=== PATIENT | female | born 1930 | race Caucasian/White ===

== ENCOUNTER → 2016-12-23 | Outpatient (CLI) | payer MEDICARE, OTHER, MEDICAID ==
[~2016-12-23] MED LIST: ALBU2.5V4 IH; ALPR0.25 PO; ASCO-262 PO; ASPI-983 PO; BENZ-13 PO; CALC-901 PO; CEFD300C3 PO; CLON0.1T PO; CYAN500T2 PO; FURO-125 PO; GUAI600T59 PO; HYDR-753 PO; LACT20SO2 PO; LOSA100T28 PO; MAGN400O7 PO; MONT10TA21 PO; NYST1POW22 TOP; POLY17PO6 PO; POTA20TA8 PO; PRAS10TA6 PO; PRED10TA22 PO; RT-ALBUINH IH; SIMV40TA4 PO; SODI30SP2 NS; TRAM50TA2 PO
--- NOTE | 2016-12-23 15:56 | Diagnostic Imaging Report ---
INDICATION: Fall. Altered mental status. Altered level of consciousness. TECHNIQUE: Routine non contrast-enhanced axial images were obtained from the skull base to the vertex. COMPARISON: None. FINDINGS: The ventricles and cortical sulci are diffusely prominent, compatible with age-related volume loss. There are confluent areas of abnormal, low attenuation in the periventricular white matter. This is consistent with small vessel ischemic changes; age-indeterminate. There is no prior study available for comparison. There is no midline shift or mass-effect. No acute intra-axial hemorrhage is seen. There are no abnormal areas of increased or decreased density to suggest acute hemorrhage or edema. No extra-axial masses or collections are present. The bony calvarium is intact. The visualized paranasal sinuses are unremarkable. The mastoid air cells are clear. IMPRESSION: 1. No acute intracranial abnormality. No CT evidence of mass, acute infarct or intracranial hemorrhage. 2. Small vessel ischemic changes in the periventricular and subcortical white matter; likely chronic. Dictated by: Dictated on workstation # [id number]
--- NOTE | 2016-12-23 16:01 | Diagnostic Imaging Report ---
PROCEDURE: CT chest without contrast. TECHNIQUE: Multiple contiguous axial images were obtained through the chest without the use of intravenous contrast. INDICATION: Right-sided rib pain. FINDINGS: There is a patchy infiltrate in the medial basal segment of the right lower lobe and a minimal infiltrate in the right middle lobe just above the minor fissure. There are no effusions. There is no pneumothorax. There is calcific arteriosclerosis of the coronary arteries. There are no displaced rib fractures seen. There is a small calculus in the gallbladder. There is a bilobed cyst in the dome of the liver with overall measurements of 34 x 20 mm. IMPRESSION: Coronary atherosclerosis. Cholecystolithiasis. Minimal infiltrate in the right middle and right lower lobes. Dictated by: Dictated on workstation # [id number]
--- NOTE | 2016-12-23 16:09 | Diagnostic Imaging Report ---
INDICATION: Right hip pain. FINDINGS: AP view of the pelvis shows postop changes from left hip arthroplasty. Right hip is unremarkable. Patient has bilateral common iliac artery stents. IMPRESSION: No acute abnormalities seen in the pelvis. Dictated by: Dictated on workstation # [id number]
--- NOTE | 2016-12-23 16:11 | Diagnostic Imaging Report ---
INDICATION: Back injury from a fall. EXAMINATION: CT thoracic and lumbar spine. TECHNIQUE: Thin axial sections through the thoracic and lumbar spine were obtained. Sagittal and coronal images were reformatted and reviewed. FINDINGS: The vertebral body height and alignment appear normal. There is some vacuum disc phenomena at T9-10, T11-12, and L5-S1. The disc spaces are otherwise unremarkable with only small osteophytes forming in the mid thoracic and mid lumbar regions. There are no compression fractures seen. IMPRESSION: Mild degenerative changes in the thoracic and lumbar spine. No fracture or acute abnormality is seen. Dictated by: Dictated on workstation # [id number]
== END ==
LOC: RAD 15:24
PROVIDERS: ATTEND Physician Assistant
DX: T14.90 Injury, unspecified (principal); R41.82 Altered mental status, unspecified; M54.6 Pain in thoracic spine; M54.5 Low back pain; R06.02 Shortness of breath; W19.XXXA Unspecified fall, initial encounter; Y92.121 Bathroom in nursing home as the place of occurrence of the external cause; Y99.8 Other external cause status
CPT/HCPCS: 70450; 71250; 72128; 72131; 72170

== ENCOUNTER 2016-12-25 17:17 | Inpatient (IN) | payer MEDICARE, OTHER, MEDICAID ==
[~2016-12-25] VITALS: Ht 149.9 cm; Wt 81.2 kg
[2016-12-25] MEDS ORDERED: fentaNYL INJECTION 100 MCG/2 ML AMP IVP STA (17:48)
[2016-12-25 18:06] LABS: BASOPHILS # (AUTO) 0.1 10^3/uL (0.0-0.1); BASOPHILS % (AUTO) 1 % (0-10); EOSINOPHILS # (AUTO) 0.5 10^3/uL (0.0-0.3); EOSINOPHILS % (AUTO) 5 % (0-10); LYMPHOCYTES # (AUTO) 1.8 X 10^3 (1.0-4.0); LYMPHOCYTES % (AUTO) 19 % (12-44); MEAN CORPUSCULAR HEMOGLOBIN 31 PG (25-34); MEAN CORPUSCULAR HGB CONC 32 G/DL (32-36); MEAN CORPUSCULAR VOLUME 96 FL (80-99); MEAN PLATELET VOLUME 10.2 FL (7.4-10.4); MONOCYTES % (AUTO) 11 % (0-12); NEUTROPHILS # (AUTO) 5.8 X 10^3 (1.8-7.8); NEUTROPHILS % (AUTO) 64 % (42-75); PLATELET COUNT 219 10^3/uL (130-400); RED BLOOD COUNT 3.67 10^6/uL (4.35-5.85); RED CELL DISTRIBUTION WIDTH 13.4 % (10.0-14.5); WHITE BLOOD COUNT 9.1 10^3/uL (4.3-11.0)
--- NOTE | 2016-12-25 18:45 | Diagnostic Imaging Report ---
PROCEDURE: US Gallbladder. TECHNIQUE: Multiple real-time grayscale images were obtained over the right upper quadrant in various projections. INDICATION: Abdominal pain COMPARISON: None available FINDINGS: Examination is limited secondary to overlying bowel gas. The liver demonstrates diffusely increased echogenicity with poor acoustic transmission, consistent with fatty infiltration of the liver. A 3.2 x 3.5 x 2.8 cm anechoic cystic lesion is identified within the right hepatic lobe with associated posterior acoustic enhancement. This appears to demonstrate a thin internal septation. No additional solid hepatic mass identified. A hyperechoic structure is identified within the gallbladder, likely related to a gallstone. No definite evidence of gallbladder wall thickening or pericholecystic fluid. The common bile duct was unable to be visualized. The pancreas was unable to be visualized. The right kidney was difficult to visualize. In particular, the inferior pole of the right kidney is not well seen. However, the right kidney likely is small in size. No evidence of hydronephrosis. No significant free fluid. Positive sonographic Gill sign per technologist. IMPRESSION: Cholelithiasis. No definite sonographic evidence of acute cholecystitis. However, the patient did demonstrate a positive sonographic Gill sign, therefore, acute cholecystitis cannot completely be excluded. If there is clinical concern for acute cholecystitis, then recommend a nuclear medicine hepatobiliary imaging scan for further evaluation. Fatty infiltration of the liver. Septated cystic lesion within the right hepatic lobe. Recommend a CT of the abdomen with and without contrast for further evaluation. This may simply relate to two adjacent cysts, though other etiology is not totally excluded. No evidence of hydronephrosis. The right kidney is small in size, though the inferior pole is difficult to visualize. Dictated by: Dictated on workstation # [id number]
[2016-12-25 18:51] LABS: ALBUMIN 4.1 G/DL (3.2-4.5); BILIRUBIN,TOTAL 0.5 MG/DL (0.1-1.0); CALCIUM 10.5 MG/DL (8.5-10.1); CREATININE SERUM 1.42 MG/DL (0.60-1.30); POTASSIUM 4.7 MMOL/L (3.6-5.0); TOTAL PROTEIN 6.7 G/DL (6.4-8.2)
[2016-12-25] MEDS ORDERED: morphine INJ 10 MG/ML 1ML (SYR OR VIAL) IVP STA (19:28)
[2016-12-25] MEDS ORDERED: FUROSEMIDE 40 MG/4 ML INJ (LASIX) IV STA (19:28)
[2016-12-25] MEDS ORDERED: NS IV 500 ML 500 ML IV ONE (19:28)
--- NOTE | 2016-12-25 19:32 | ED General ---
General Chief Complaint: Abdominal/GI Problems Stated Complaint: IRREGULAR LAB RESULTS Nursing Triage Note: PT BROUGHT IN BY FAMILY WITH ELEVATED WBC, RUQ PAIN AND FREQUENT FALLS. Nursing Sepsis Screen: No Definite Risk Source of Information: Patient, Family Exam Limitations: No Limitations History of Present Illness Time Seen by Provider: 17:49 Initial Comments 86-year-old female patient known to this examiner as an outpatient for internal medicine. Patient has been noted over the last 2-3 weeks to have progressive confusion as well as a recent fall. Patient does have a history of shortness of air and chronic renal failure. Patient has been noticing to have progressively worsening shortness of air over the last several days. Today also noted to have increased abdominal pain and poor appetite. Patient did have recent CT Chest, CT lumbar/thoracic spine, CT head, and pelvis xray. Timing/Duration: Changing Over Time, Getting Worse, Other (approx 2-3 wks) Modifying Factors: worse with Movement, worse with Other (eating) Allergies and Home Medications Allergies Coded Allergies: celecoxib (Verified Allergy, Unknown, 12/25/16) iodine (Verified Allergy, Unknown, 12/25/16) Constitutional: No chills, No diaphoresis, No dizziness, No fever, malaise EENTM: no symptoms reported Respiratory: No cough, dyspnea on exertionNo orthopnea, No phlegm, short of breathNo wheezing Cardiovascular: No chest pain, edemaNo palpitations, No syncope Gastrointestinal: abdominal painNo constipation, No diarrhea, No hematemesis, No jaundice, loss of appetiteNo melena, nauseaNo vomiting Genitourinary: No decreased output, No dysuria, No frequency, No hematuria, No pain Musculoskeletal: back painNo joint pain, No neck pain Skin: change in color (ecchymosis of the Back, rt ribs) Psychiatric/Neurological: Denies Headache, Denies Numbness, Denies Paresthesia , Denies Seizure, Denies Tingling, Denies Weakness All Other Systems Reviewed Negative Unless Noted: Yes (Negative excepted noted.) Past Oluxqfy-Aalawg-Byyjvs Hx Patient Social History Recent Foreign Travel: No Contact w/Someone Who Travel: No Recent Infectious Disease Expo: No Recent Hopitalizations: No Seasonal Allergies Seasonal Allergies: No Surgeries HX Surgeries: Yes Respiratory Hx Respiratory Disorders: Yes Cardiovascular Hx Cardiac Disorders: Yes Neurological Hx Neurological Disorders: Yes Neurological Disorders: Dementia Genitourinary Hx Genitourinary Disorders: Yes Genitourinary Disorders: Renal Failure Gastrointestinal Hx Gastrointestinal Disorders: Yes Musculoskeletal Hx Musculoskeletal Disorders: Yes Reviewed Nursing Assessment Reviewed/Agree w Nursing PMH: Yes Family Medical History Significant Family History: No Pertinent Family Hx Physical Exam Vital Signs Vital Sign - Last 12Hours 12/25/16 12/25/16 17:49 20:57 Temp 98.5 Pulse 75 Resp 20 B/P 176/83 Pulse Ox 95 O2 Delivery Room Air O2 Flow Rate 2 Capillary Refill : Less Than 3 Seconds General Appearance: Chronically ill Mild Distress HEENT: PERRL/EOMI TMs Normal Normal ENT Inspection Pharynx Normal Neck: Full Range of Motion Normal Inspection Non Tender Supple Respiratory: No Respiratory Distress Decreased Breath Sounds (bilat bases) Rhonci Other (rt lower ribs ttp (anterior, lateral, and posterior)) Cardiovascular: Regular Rate, Rhythm No Murmur Gastrointestinal: Normal Bowel Sounds No Organomegaly SoftNo Distended, Guarding (right upper quadrant)No Rebound, Tenderness (right upper quadrant with a positive Gill sign) Back: No Vertebral Tenderness, Other (ecchymosis of the right upper back and right lateral lower ribs.) Extremity: Normal Capillary Refill Normal Range of Motion Non Tender No Calf Tenderness Pedal Edema (2+ pedal edema bilaterally) Other (scattered areas of ecchymosis of the right upper extremity without tenderness. Bilateral lower extremities show venous stasis changes without open wound.) Neurologic/Psychiatric: Alert Oriented x3 No Motor/Sensory Deficits bow string maker II- XII Norm as Tested Depressed Affect Skin: Normal Color Warm/Dry Ecchymosis (right mid back, right lateral lower ribs, right upper extremity) Other (venous stasis changes of the bilateral lower extremities) Progress/Results/Core Measures Results/Orders Lab Results Laboratory Tests Test 12/25/16 17:52 12/25/16 20:38 Range/Units Alanine Aminotransferase (ALT/SGPT) 31 0-55 U/L Albumin 4.1 3.2-4.5 G/DL Alkaline Phosphatase 77 40-136 U/L Anion Gap 13 5-14 MMOL/L Aspartate Amino Transf (AST/SGOT) 43 H 5-34 U/L BUN/Creatinine Ratio 13 Basophils # (Auto) 0.1 0.0-0.1 10^3/uL Basophils (%) (Auto) 1 0-10 % Blood Urea Nitrogen 19 H 7-18 MG/DL Calcium Level 10.5 H 8.5-10.1 MG/DL Carbon Dioxide Level 25 21-32 MMOL/L Chloride Level 104 98-107 MMOL/L Creatinine 1.42 H 0.60-1.30 MG/DL Eosinophils # (Auto) 0.5 H 0.0-0.3 10^3/uL Eosinophils (%) (Auto) 5 0-10 % Estimat Glomerular Filtration Rate 35 Glucose Level 96 70-105 MG/DL Hematocrit 35 35-52 % Hemoglobin 11.4 L 11.5-16.0 G/DL Lipase 14 8-78 U/L Lymphocytes # (Auto) 1.8 1.0-4.0 X 10^3 Lymphocytes (%) (Auto) 19 12-44 % Mean Corpuscular Hemoglobin 31 25-34 PG Mean Corpuscular Hemoglobin Concent 32 32-36 G/DL Mean Corpuscular Volume 96 80-99 FL Mean Platelet Volume 10.2 7.4-10.4 FL Monocytes # (Auto) 1.0 0.0-1.0 X 10^3 Monocytes (%) (Auto) 11 0-12 % Neutrophils # (Auto) 5.8 1.8-7.8 X 10^3 Neutrophils (%) (Auto) 64 42-75 % Platelet Count 219 130-400 10^3/uL Potassium Level 4.7 3.6-5.0 MMOL/L Red Blood Count 3.67 L 4.35-5.85 10^6/uL Red Cell Distribution Width 13.4 10.0-14.5 % Sodium Level 142 135-145 MMOL/L Total Bilirubin 0.5 0.1-1.0 MG/DL Total Protein 6.7 6.4-8.2 G/DL White Blood Count 9.1 4.3-11.0 10^3/uL Urine Bacteria FEW H /HPF Urine Bilirubin NEGATIVE NEGATIVE Urine Casts NONE /LPF Urine Clarity SLIGHTLY CLOUDY Urine Color YELLOW Urine Crystals NONE /LPF Urine Culture Indicated YES Urine Glucose (UA) NEGATIVE NEGATIVE Urine Ketones NEGATIVE NEGATIVE Urine Leukocyte Esterase 3+ H NEGATIVE Urine Mucus NEGATIVE /LPF Urine Nitrite NEGATIVE NEGATIVE Urine Protein NEGATIVE NEGATIVE Urine RBC NONE /HPF Urine RBC (Auto) NEGATIVE NEGATIVE Urine Specific Edwards 1.010 L 1.016-1.022 Urine Squamous Epithelial Cells 0-2 /HPF Urine Urobilinogen NORMAL NORMAL MG/DL Urine WBC 10-25 H /HPF Urine pH 7 5-9 My Orders Orders-CHANTELL PAVON Saline Lock/Iv-Start (12/25/16 17:29) Cbc With Automated Diff (12/25/16 17:29) Comprehensive Metabolic Panel (12/25/16 17:29) Lipase (12/25/16 17:29) Ua Culture If Indicated (12/25/16 17:29) Us Gallbladder [id number] (12/25/16 17:44) Fentanyl Injection (Sublimaze Injection (12/25/16 17:48) Ct Abdomen/Pelvis Wo (12/25/16 19:28) Ns Iv 500 Ml (Sodium Chloride 0.9%) (12/25/16 19:28) Morphine Injection (Morphine Injection (12/25/16 19:28) Furosemide Injection (Lasix Injection) (12/25/16 19:28) Albuterol/Ipra Inhalation Soln (Duoneb I (12/25/16 20:45) Svn Sm Volume Nebulizer Rt-Rfs (12/25/16 20:43) Incentive Spirometryrt Initial (12/25/16 20:43) Incentive Spirometry (Nursing) Q2H (12/25/16 20:43) Urine Culture (12/25/16 20:38) Medications Given in ED Current Medications Medications Dose Ordered Sig/Magalis Route Start Time Stop Time Status Last Admin Dose Admin Albuterol/ Ipratropium 3 ml ONCE ONCE INH 12/25/16 20:45 12/25/16 20:46 DC 12/25/16 20:56 3 ML Sodium Chloride 500 ml @ 0 mls/hr Q0M ONCE IV 12/25/16 19:28 12/25/16 19:29 DC 12/25/16 20:05 0 MLS/HR Vital Signs/I&O Vital Sign - Last 12Hours 12/25/16 12/25/16 12/25/16 12/25/16 17:49 20:57 22:05 23:22 Temp 98.5 98.5 Pulse 75 77 Resp 20 16 B/P 176/83 Pulse Ox 95 95 96 92 O2 Delivery Room Air O2 Flow Rate 2 2 Intake and Output 12/26/16 00:00 Intake Total 500 ml Balance 500 ml Blood Pressure Mean: 114 Diagnostic Imaging Diagonstic Imaging: Ultrasound Plain Films/CT/US/NM/MRI: other (gallbladder) Comments FINDINGS: Examination is limited secondary to overlying bowel gas. The liver demonstrates diffusely increased echogenicity with poor acoustic transmission, consistent with fatty infiltration of the liver. A 3.2 x 3.5 x 2.8 cm anechoic cystic lesion is identified within the right hepatic lobe with associated posterior acoustic enhancement. This appears to demonstrate a thin internal septation. No additional solid hepatic mass identified. A hyperechoic structure is identified within the gallbladder, likely related to a gallstone. No definite evidence of gallbladder wall thickening or pericholecystic fluid. The common bile duct was unable to be visualized. The pancreas was unable to be visualized. The right kidney was difficult to visualize. In particular, the inferior pole of the right kidney is not well seen. However, the right kidney likely is small in size. No evidence of hydronephrosis. No significant free fluid. Positive sonographic Gill sign per technologist. IMPRESSION: Cholelithiasis. No definite sonographic evidence of acute cholecystitis. However , the patient did demonstrate a positive sonographic Gill sign, therefore, acute cholecystitis cannot completely be excluded. If there is clinical concern for acute cholecystitis, then recommend a nuclear medicine hepatobiliary imaging scan for further evaluation. Fatty infiltration of the liver. Septated cystic lesion within the right hepatic lobe. Recommend a CT of the abdomen with and without contrast for further evaluation. This may simply relate to two adjacent cysts, though other etiology is not totally excluded. No evidence of hydronephrosis. The right kidney is small in size, though the inferior pole is difficult to visualize. Dictated by: Dictated on workstation # [id number] Reviewed: Reviewed by Me (radiology report reviewed by me) Diagonstic Imaging: CT Plain Films/CT/US/NM/MRI: abdomen, pelvis Comments FINDINGS: Minimal interstitial opacities are identified within the right lung base, particularly posteriorly within the right lower lobe. Otherwise, the visualized lungs appear clear. Tiny hiatal hernia. 3.4 cm bilobed hypodensity within the central liver. Otherwise, the unenhanced liver is unremarkable. The unenhanced spleen is unremarkable. The adrenal glands are unremarkable. The pancreas is unremarkable. Minimal layering sludge and/or gallstones within the lumen of the gallbladder without adjacent fat stranding. The right kidney is unremarkable. 3.2 cm hypodensity is identified within the mid left kidney. Otherwise, the left kidney and ureter are unremarkable. Extensive vascular calcifications within the abdominal aorta and its branch vessels without aneurysmal dilatation of the abdominal aorta. The urinary bladder is unremarkable. The uterus is not visualized, likely surgically absent. No abnormal adnexal mass lesion. No bowel obstruction or pneumatosis. No significant adenopathy, free air, or free fluid within the abdomen or pelvis. Left total hip arthroplasty. 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 Scattered osseous degenerative changes. Suggestion of a nondisplaced posterior right ninth rib fracture, best seen on series 2, image 10. IMPRESSION: Suggestion of a nondisplaced posterior right ninth rib fracture with minimal adjacent contusion or atelectasis. 3.2 cm hypodensity within the left mid kidney and 3.4 cm hypodensity within the central liver are identified which are incompletely evaluated without the use of intravenous contrast. Although this may simply relate to a simple cyst, additional etiology is not excluded. Recommend CT of the abdomen with and without contrast for further evaluation. Cholelithiasis. Bilateral pars interarticularis defects of L5 with associated grade 1 anterolisthesis of L5 on S1. Additional findings as above. Dictated by: Dictated on workstation # [id number] Reviewed: Reviewed by Me (radiology report reviewed by me) Departure Communication Time/Spoke to Admitting Phy: 21:[address] Julien accepts patient to her internal med service for IV antibiotics, lasix , nebulizer treatments, and further evaluation. Progress Notes Patient seen and evaluated. Patient continues to require O2 to keep SaO2 greater than 90%. Patient does not use O2 at the [place]. Plan for admission for IV antibiotics, neb tx, and lasix. All laboratory findings, diagnostic study findings, and plan for admission discussed with the patient and family. All voiced understanding and agree with the treatment plan. Patient case discussed with Dr. Beach, he agrees with the plan of care. Impression Impression: Primary Impression: Pneumonia Additional Impressions: Hypoxia Rib fracture Urinary tract infection Chronic renal failure Chronic renal failure, stage 3 (moderate) Disposition: ADMITTED INPATIENT Condition: Stable Decision to Admit Reason: Admit from ER (General) Decision to Admit/Date: Dec 25, 2016 Time/Decision to Admit Time: 21:20 Departure-Patient Inst. Referrals: EMA RUBY MD (PCP/Family) Primary Care Physician CHANTELL PAVON Dec 25, 2016 19:32
--- NOTE | 2016-12-25 20:07 | Diagnostic Imaging Report ---
PROCEDURE: CT abdomen and pelvis without contrast. TECHNIQUE: Multiple contiguous axial images were obtained through the abdomen and pelvis without the use of intravenous contrast. INDICATION: Upper abdominal pain COMPARISON: Ultrasound from same day FINDINGS: Minimal interstitial opacities are identified within the right lung base, particularly posteriorly within the right lower lobe. Otherwise, the visualized lungs appear clear. Tiny hiatal hernia. 3.4 cm bilobed hypodensity within the central liver. Otherwise, the unenhanced liver is unremarkable. The unenhanced spleen is unremarkable. The adrenal glands are unremarkable. The pancreas is unremarkable. Minimal layering sludge and/or gallstones within the lumen of the gallbladder without adjacent fat stranding. The right kidney is unremarkable. 3.2 cm hypodensity is identified within the mid left kidney. Otherwise, the left kidney and ureter are unremarkable. Extensive vascular calcifications within the abdominal aorta and its branch vessels without aneurysmal dilatation of the abdominal aorta. The urinary bladder is unremarkable. The uterus is not visualized, likely surgically absent. No abnormal adnexal mass lesion. No bowel obstruction or pneumatosis. No significant adenopathy, free air, or free fluid within the abdomen or pelvis. Left total hip arthroplasty. 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 Scattered osseous degenerative changes. Suggestion of a nondisplaced posterior right ninth rib fracture, best seen on series 2, image 10. IMPRESSION: Suggestion of a nondisplaced posterior right ninth rib fracture with minimal adjacent contusion or atelectasis. 3.2 cm hypodensity within the left mid kidney and 3.4 cm hypodensity within the central liver are identified which are incompletely evaluated without the use of intravenous contrast. Although this may simply relate to a simple cyst, additional etiology is not excluded. Recommend CT of the abdomen with and without contrast for further evaluation. Cholelithiasis. Bilateral pars interarticularis defects of L5 with associated grade 1 anterolisthesis of L5 on S1. Additional findings as above. Dictated by: Dictated on workstation # [id number]
[2016-12-25] MEDS ORDERED: RT-ALBUTEROL/IPRATROPIUM 3 ML (DUONEB) VIAL INH ONE (20:45)
[2016-12-25 20:47] LABS: BILIRUBIN,URINE NEGATIVE (NEGATIVE); KETONES,URINE NEGATIVE (NEGATIVE); LEUKOCYTE ESTERASE ,URINE 3+ (NEGATIVE); NITRITE,URINE NEGATIVE (NEGATIVE); PH,URINE 7 (5-9); PROTEIN,URINE NEGATIVE (NEGATIVE); UROBILINOGEN,URINE NORMAL (NORMAL)
[2016-12-25 20:56] LABS: SQUAMOUS EPITHELIAL CELL,UR 0-2 /HPF
[2016-12-25] MEDS ORDERED: ONDANSETRON 4 MG/2 ML (SDV) Z0FRAN IV PRN (22:45)
[2016-12-25] MEDS ORDERED: HYDROcodone/APAP 7.5 MG/325 MG (LORTAB, LORCET PLUS) TABLET PO PRN (22:45)
[2016-12-25] MEDS ORDERED: RT-ALBUTEROL SULF 2.5 MG/3 ML PRE-MIX VIAL INH PRN (23:30)
[2016-12-26] MEDS: fentaNYL INJECTION 100 MCG/2 ML AMP IV PRN ×5 (00:11→21:36)
[2016-12-26 00:51] VITALS: BP 134/69
[2016-12-26] MEDS: RT-ALBUTEROL SULF 2.5 MG/3 ML PRE-MIX VIAL INH SCH ×6 (02:23→22:47)
[2016-12-26 04:50] VITALS: BP 132/58
[2016-12-26 05:48] LABS: BASOPHILS % (AUTO) 0 % (0-10); EOSINOPHILS # (AUTO) 0.3 10^3/uL (0.0-0.3); EOSINOPHILS % (AUTO) 3 % (0-10); LYMPHOCYTES % (AUTO) 11 % (12-44); MEAN CORPUSCULAR HEMOGLOBIN 31 PG (25-34); MEAN CORPUSCULAR HGB CONC 32 G/DL (32-36); MEAN CORPUSCULAR VOLUME 96 FL (80-99); MEAN PLATELET VOLUME 10.3 FL (7.4-10.4); MONOCYTES # (AUTO) 0.9 X 10^3 (0.0-1.0); MONOCYTES % (AUTO) 10 % (0-12); NEUTROPHILS # (AUTO) 6.8 X 10^3 (1.8-7.8); NEUTROPHILS % (AUTO) 76 % (42-75); PLATELET COUNT 211 10^3/uL (130-400); RED BLOOD COUNT 3.42 10^6/uL (4.35-5.85); RED CELL DISTRIBUTION WIDTH 13.3 % (10.0-14.5)
[2016-12-26 06:07] LABS: ALBUMIN 3.5 G/DL (3.2-4.5); BILIRUBIN,TOTAL 0.6 MG/DL (0.1-1.0); CALCIUM 9.5 MG/DL (8.5-10.1); CREATININE SERUM 1.33 MG/DL (0.60-1.30); POTASSIUM 3.8 MMOL/L (3.6-5.0); TOTAL PROTEIN 6.2 G/DL (6.4-8.2)
[2016-12-26] MEDS: FUROSEMIDE 40 MG (LASIX) TAB PO SCH (06:19)
[2016-12-26 08:00] VITALS: BP 125/57
[2016-12-26] MEDS ORDERED: CATHETER FLUSH 10 ML SYR IV PRN (08:00)
[2016-12-26] MEDS ORDERED: HYDR-753 PO (08:22)
[2016-12-26] MEDS ORDERED: ALBU2.5V4 IH (08:22)
[2016-12-26] MEDS ORDERED: MAGN400O7 PO (08:22)
[2016-12-26] MEDS ORDERED: MONT10TA21 PO (08:22)
[2016-12-26] MEDS ORDERED: RT-ALBUINH IH (08:22)
[2016-12-26] MEDS ORDERED: LOSA100T28 PO (08:22)
[2016-12-26] MEDS ORDERED: ASPI-983 PO (08:22)
[2016-12-26] MEDS ORDERED: SIMV40TA4 PO (08:22)
[2016-12-26] MEDS ORDERED: TRAM50TA2 PO (08:22)
[2016-12-26] MEDS ORDERED: PRAS10TA6 PO (08:22)
[2016-12-26] MEDS ORDERED: POLY17PO6 PO (08:22)
[2016-12-26] MEDS ORDERED: ASCO-262 PO (08:22)
[2016-12-26] MEDS ORDERED: FURO-125 PO (08:22)
[2016-12-26] MEDS ORDERED: BENZ-13 PO (08:22)
[2016-12-26] MEDS ORDERED: CALC-901 PO (08:22)
[2016-12-26] MEDS ORDERED: CYAN500T2 PO (08:22)
[2016-12-26] MEDS ORDERED: POTA20TA8 PO (08:22)
[2016-12-26] MEDS ORDERED: NYST1POW22 TOP (08:22)
[2016-12-26] MEDS ORDERED: ALPR0.25 PO (08:22)
[2016-12-26] MEDS ORDERED: GUAI600T59 PO (08:22)
[2016-12-26] MEDS ORDERED: SODI30SP2 NS (08:22)
[2016-12-26] MEDS ORDERED: CLON0.1T PO (08:22)
--- NOTE | 2016-12-26 09:11 | Diagnostic Imaging Report ---
Clinical indication: Patient status post fall approximately 2 days ago. Patient has right rib fracture at approximately T7. Exam: Chest x-ray PA and lateral views. Comparison: Chest CT scan without IV contrast dated 12/23/2016. Chest x-ray dated 08/06/2010. Findings: There is mild right upper lobe and bibasilar atelectasis, but superimposed infiltrate cannot be completely excluded. There is no pleural effusion or pneumothorax. The cardiac silhouette is enlarged. There is no significant pulmonary vascular congestion. There are degenerative spurs involving the thoracic spine. Fusion hardware is seen involving the lower cervical spine. There is advanced degenerative disease of both shoulders. Of note, the described T7 rib fracture is not visualized on this exam. Impression: 1: There is right upper lobe and bibasilar atelectasis, but superimposed infiltrate cannot be completely excluded. 2: There is cardiomegaly with no significant pulmonary vascular congestion. 3: Of note, the described T7 rib fracture is not visualized on this exam. Dictated by: Dictated on workstation # [id number]
[2016-12-26] MEDS ORDERED: MILK OF MAGNESIA 400 MG/5 ML 30 ML UDC PO PRN (09:30)
[2016-12-26] MEDS ORDERED: POLYETHYLENE GLYCOL 17 GM (MIRALAX) PACK PO SCH (09:30)
[2016-12-26] MEDS ORDERED: BENZONATATE 100 MG (TESSALON) CAPSULE PO PRN (09:30)
--- NOTE | 2016-12-26 10:36 | History & Physical-Hospitalist ---
HPI History of Present Illness: HPI/Chief Complaint CC: Hypoxia HPI: This is an 86yoWF pt from [facility] that presented to ER with hypoxia and confusion since a recent fall. She had increased SOB even after CT scans obtained after fall but now she is hypoxic with ATX/infiltrate of the right upper lobe consistent with pneumonia causing hypoxia. Pt is DNR. Chart Review: WBC normal at 9 Hgb 10.5 Creat improved at 1.33 from 1.42 Liver enzymes normal UA normal Patient Interview: Pt states that she has significant pain on her right side. Pt does not remember on which side she fell. Physical exam was stable. Pt was unable to roll over during physical exam. Pt was tired during visit. Scribed by Panda Rios under the direct supervision of Dr. Julien. Source: patient Exam Limitations: no limitations Date Seen 12/26/16 Attending Physician Jose Park MD PCP Jose Park MD Referring Physician Date of Admission Dec 25, 2016 at 21:54 Home Medications & Allergies Home Medications Reviewed patient Home Medication Reconciliation Form Allergies Coded Allergies: celecoxib (Verified Allergy, Unknown, 12/25/16) iodine (Verified Allergy, Unknown, 12/25/16) Past Qhjgkuf-Mcrxcn-Kefwvd Hx Patient Social History Marrital Status: Employed/Student: retired Alcohol Use: Denies Use Recreational Drug Use: No Smoking Status: Former Smoker Type Used: Cigarettes Physical Abuse Screen: No Sexual Abuse: No Recent Foreign Travel: No Contact w/other who traveled: No Recent Hopitalizations: No Recent Infectious Disease Expo: No Immunizations Up To Date Date of Pneumonia Vaccine: Aug 24, 2015 Date of Influenza Vaccine: Aug 24, 2016 Seasonal Allergies Seasonal Allergies: No Surgeries HX Surgeries: Yes Respiratory Hx Respiratory Disorders: Yes Respiratory Disorders: Asthma, COPD, Pneumonia Cardiovascular Hx Cardiovascular Disorders: Yes Cardiac Disorders: High Cholesterol, Hypertension Neurological Hx Neurological Disorders: Yes Neurological Disorders: Dementia Genitourinary Hx Genitourinary Disorders: Yes Genitourinary Disorders: Renal Failure Gastrointestinal Hx Gastrointestinal Disorders: Yes Gastrointestinal Disorders: Diverticulosis, Hiatal Hernia Musculoskeletal Hx Musculoskeletal Disorders: Yes Musculoskeletal Disorders: Arthritis Psychosocial Behavioral Health Disorders: Anxiety Blood Transfusions Adverse Reaction to a Blood Tr: No Reviewed Nursing Assessment Reviewed/Agree w Nursing PMH: Yes Family Medical History Significant Family History: No Pertinent Family Hx Review of Systems ROS-Unable to Obtain: unable to obtain due to dementia and just overall inability to recover Constitutional: see HPI Physical Exam Physical Exam Vital Signs Vital Sign - Last 12Hours 12/25/16 12/25/16 17:49 20:57 Temp 98.5 Pulse 75 Resp 20 B/P 176/83 Pulse Ox 95 O2 Delivery Room Air O2 Flow Rate 2 Capillary Refill : Less Than 3 Seconds General Appearance: No Apparent Distress WD/WN Chronically ill Eyes: Bilateral Eye Normal Inspection, Bilateral Eye PERRL HEENT: PERRL/EOMI Normal ENT Inspection Pharynx Normal Neck: Full Range of Motion Normal Inspection Non Tender Supple Carotid Bruit Respiratory: Chest Non Tender No Accessory Muscle Use No Respiratory Distress Crackles Decreased Breath Sounds Cardiovascular: Regular Rate, Rhythm No Edema No Gallop No JVD No Murmur Normal Peripheral Pulses Gastrointestinal: Normal Bowel Sounds No Organomegaly No Pulsatile Mass Non Tender Soft Back: Normal Inspection No CVA Tenderness No Vertebral Tenderness Extremity: Normal Capillary Refill Normal Inspection Normal Range of Motion Non Tender No Calf Tenderness No Pedal Edema Neurologic/Psychiatric: No Motor/Sensory Deficits Normal Mood/Affect Disoriented x3 Other (refuses to open her eyes) Skin: Normal Color Warm/Dry Lymphatic: No Adenopathy Results Results/Procedures Lab Laboratory Tests 12/25/16 17:52 12/26/16 05:15 Assessment/Plan Admission Diagnosis Assessment: Pneumonia with hypoxia Falls Chronic pain Dementia HTN COPD Anxiety HLP Severe debility with inability to motivate consulting palliative care Assessment and Plan Plan: Home O2 eval Palliative care consult Reconciled all home meds Really unable to recover from the situation and it appears that she is the end- stage of her life so will likely switch to oral antibiotics maintain home oxygen and discharge back to the assisted with hospice consult Clinical Quality Measures DVT/VTE Risk/Contraindication: Risk Factor Score Per Nursin RFS Level Per Nursing on Admit: 4+=Very High JANE JULIEN DO Dec 26, 2016 10:36
--- NOTE | 2016-12-26 10:56 | Physical Therapy Evaluation ---
PT Evaluation-General Medical Diagnosis Admission Date Dec 25, 2016 at 21:54 Medical Diagnosis: hypoxia/pneumonia/right rib fx Onset Date: Dec 25, 2016 Therapy Diagnosis Therapy Diagnosis: severe debility/weakness Height/Weight Height (Feet): 4 Height (Inches): 11.00 Weight (Pounds): 179 Weight (Ounces): 0.6 Precautions Precautions/Isolations: Fall Prevention, Standard Precautions Referral Physician: Wily Reason for Referral: Evaluation/Treatment Medical History Pertinent Medical History: Dementia, Heart Failure Additional Medical History 2 falls in past 2 weeks Current History brought to ED via family with findings of elevated WBC, RUQ pain and frequent falls Reviewed History: Yes Social History Home: Longterm Prior/Core FIM Prior Level of Function Functional [place] Measure 0=Not Assessed/NA 4=Minimal Assistance 1=Total Assistance 5=Supervision or Setup 2=Maximal Assistance 6=Modified [place] 3=Moderate Assistance 7=Complete [place] Bed Mobility: 5 Transfers (B,C,W/C) (FIM): 5 Gait: 5 PT Evaluation-Current Subjective Patient is in bed with family present. Patient reluctantly agrees to attempt PT. Pain Numeric Pain Scale: 10-Worst Possible Pain Location: Right, Upper Location Body Site: Side Pain Description: Stabbing Objective Patient Orientation: Confused Problem Solving: Poor Attachments: Oxygen ROM/Strength ROM Lower Extremities bilateral LE WFL Strenght Lower Extremities 3-/5 grossly bilaterally; no formal testing Integumentary/Posture Integumentary refer to nursing notes Neuromuscular (Tone, Coordination, Reflexes) severely diminished with all Sensory Vision: Wears Glasses Hearing: Impaired Sensation Right Lower Extremit: Intact Sensation Left Lower Extremity: Intact Transfers Functional [place] Measure 0=Not Assessed/NA 4=Minimal Assistance 1=Total Assistance 5=Supervision or Setup 2=Maximal Assistance 6=Modified [place] 3=Moderate Assistance 7=Complete [place] Transfers (B, C, W/C) (FIM): 1 Scootin Rollin attempted supine to sit, however, patient unable to tolerate due to RUQ pain and began yelling in pain. RN present Assessment/Needs 86 y.o. female, will not requires skilled PT per Dr. Julien due to uncontrolled pain, and overall Poor Prognosis. Rehab Potential: Poor PT Plan Treatment/Plan Treatment Plan: Discontinue PT Time/GCodes Time In: 1015 Time Out: 1035 Total Billed Treatment Time: 20 Total Billed Treatment 1 visit EVModC 20 min G Codes Necessary: No STEFFANIE ZARATE PT Dec 26, 2016 10:56
[2016-12-26] MEDS: CATHETER FLUSH 10 ML SYR IV SCH ×2 (11:58→21:39)
[2016-12-26 12:00] VITALS: BP 148/65
[2016-12-26] MEDS: HYDROcodone/APAP 10 MG/325 MG (LORTAB) TAB PO PRN ×2 (12:37→18:28)
[2016-12-26] MEDS: ALPRAZolam 0.5 MG (XANAX) TAB PO SCH ×2 (12:37→21:38)
[2016-12-26] MEDS: RT-BUDESONIDE NEBS 0.5 MG/2ML (PULMICORT) AMP INH SCH ×2 (12:45→19:02)
[2016-12-26] MEDS ORDERED: ACETAMINOPHEN 500 MG TAB (TYLENOL) PO PRN (12:45)
[2016-12-26] MEDS: LEVOFLOXACIN 750 MG/150 ML IV 150 ML IV SCH (13:24)
[2016-12-26] MEDS: SALINE NASAL SPRAY (OCEAN) 45 ML BTL NS PRN (13:25)
[2016-12-26] MEDS: methylPREDNISolone 40 MG/ML (Solu-MEDROL) VIAL IV SCH ×2 (13:27→18:09)
[2016-12-26] MEDS: CEFEPIME INJECTION 2,000 MG in NS (IVPB) 50 ML IV SCH (15:00)
[2016-12-26 15:50] VITALS: BP 144/65
[2016-12-26 20:00] VITALS: BP 118/58
[2016-12-26] MEDS ORDERED: FUROSEMIDE 20 MG (LASIX) TAB PO SCH (21:00)
[2016-12-26] MEDS: guaiFENesin (MUCINEX) 600 MG TAB PO SCH (21:36)
[2016-12-26] MEDS: MONTELUKAST 10 MG (SINGULAIR) TAB PO SCH (21:37)
[2016-12-26] MEDS: KCL 20 MEQ TAB (K-DUR) PO SCH (21:37)
[2016-12-26] MEDS: SIMvastatin 40 MG (ZOCOR) TAB PO SCH (21:37)
[2016-12-26] MEDS: cloNIDine 0.1 MG (CATAPRES) TAB PO SCH (21:38)
[2016-12-27] MEDS: methylPREDNISolone 40 MG/ML (Solu-MEDROL) VIAL IV SCH ×4 (00:18→17:57)
[2016-12-27 00:20] VITALS: BP 132/60
[2016-12-27] MEDS: RT-ALBUTEROL SULF 2.5 MG/3 ML PRE-MIX VIAL INH SCH ×6 (02:10→22:22)
[2016-12-27 04:00] VITALS: BP 134/60
[2016-12-27] MEDS: fentaNYL INJECTION 100 MCG/2 ML AMP IV PRN (04:30)
[2016-12-27 05:25] LABS: BASOPHILS % (AUTO) 0 % (0-10); EOSINOPHILS % (AUTO) 0 % (0-10); LYMPHOCYTES # (AUTO) 0.7 X 10^3 (1.0-4.0); LYMPHOCYTES % (AUTO) 6 % (12-44); MEAN CORPUSCULAR HEMOGLOBIN 31 PG (25-34); MEAN CORPUSCULAR HGB CONC 32 G/DL (32-36); MEAN CORPUSCULAR VOLUME 94 FL (80-99); MEAN PLATELET VOLUME 10.1 FL (7.4-10.4); MONOCYTES # (AUTO) 0.2 X 10^3 (0.0-1.0); MONOCYTES % (AUTO) 1 % (0-12); NEUTROPHILS # (AUTO) 10.3 X 10^3 (1.8-7.8); NEUTROPHILS % (AUTO) 93 % (42-75); PLATELET COUNT 223 10^3/uL (130-400); RED BLOOD COUNT 3.51 10^6/uL (4.35-5.85); RED CELL DISTRIBUTION WIDTH 13.1 % (10.0-14.5); WHITE BLOOD COUNT 11.1 10^3/uL (4.3-11.0)
[2016-12-27 05:41] LABS: ALBUMIN 3.5 G/DL (3.2-4.5); BILIRUBIN,TOTAL 0.5 MG/DL (0.1-1.0); CALCIUM 9.3 MG/DL (8.5-10.1); CREATININE SERUM 1.43 MG/DL (0.60-1.30); POTASSIUM 3.8 MMOL/L (3.6-5.0); TOTAL PROTEIN 6.2 G/DL (6.4-8.2)
[2016-12-27 05:52] LABS: LYMPHOCYTES % (MANUAL) 7 %; NEUTROPHILS % (MANUAL) 92 %
[2016-12-27] MEDS: CATHETER FLUSH 10 ML SYR IV SCH ×3 (06:35→20:22)
[2016-12-27] MEDS: FUROSEMIDE 40 MG (LASIX) TAB PO SCH (06:35)
[2016-12-27 08:00] VITALS: BP 187/76
[2016-12-27] MEDS: guaiFENesin (MUCINEX) 600 MG TAB PO SCH ×2 (08:32→20:20)
[2016-12-27] MEDS: CYANOCOBALAMIN 500 MCG TAB (VITAMIN B-12) PO SCH (08:32)
[2016-12-27] MEDS: ASPIRIN E.C. 81 MG (ECOTRIN) TAB PO SCH (08:32)
[2016-12-27] MEDS: LOSARTAN 50 MG (COZAAR) TAB PO SCH (08:32)
[2016-12-27] MEDS: PRASUGREL 10 MG (EFFIENT) TABLET PO SCH (08:33)
[2016-12-27] MEDS: ALPRAZolam 0.5 MG (XANAX) TAB PO SCH ×3 (08:33→20:21)
[2016-12-27] MEDS: cloNIDine 0.1 MG (CATAPRES) TAB PO SCH ×2 (08:33→20:21)
[2016-12-27] MEDS: KCL 20 MEQ TAB (K-DUR) PO SCH ×2 (08:33→20:22)
[2016-12-27] MEDS: RT-BUDESONIDE NEBS 0.5 MG/2ML (PULMICORT) AMP INH SCH ×2 (08:42→18:35)
--- NOTE | 2016-12-27 10:26 | Physical Therapy Evaluation ---
PT Evaluation-General Medical Diagnosis Admission Date Dec 25, 2016 at 21:54 Medical Diagnosis: hypoxia/pneumonia/right rib fx Onset Date: Dec 25, 2016 Therapy Diagnosis Therapy Diagnosis: debility/weakness Height/Weight Height (Feet): 4 Height (Inches): 11.00 Weight (Pounds): 179 Weight (Ounces): 0.6 Precautions Precautions/Isolations: Fall Prevention, Standard Precautions Referral Physician: Wily Reason for Referral: Evaluation/Treatment Medical History Pertinent Medical History: Dementia, Heart Failure Additional Medical History increase SOA after fall Current History fall at [facility] Reviewed History: Yes Social History Home: [place] Prior/Core FIM Prior Level of Function Functional [place] Measure 0=Not Assessed/NA 4=Minimal Assistance 1=Total Assistance 5=Supervision or Setup 2=Maximal Assistance 6=Modified [place] 3=Moderate Assistance 7=Complete [place] Bed Mobility: 5 Transfers (B,C,W/C) (FIM): 5 Gait: 5 uses FWW at [facility] PT Evaluation-Current Subjective Patient is agreeable to participate with PT. Family is present. Pain Numeric Pain Scale: 0-No Pain Location: No Pain Reported Objective Patient Orientation: Confused Problem Solving: Poor Attachments: Oxygen (2-3L NC) ROM/Strength ROM Lower Extremities bilateral LE WFL Strenght Lower Extremities 4-/5 grossly bilateral LE Integumentary/Posture Integumentary refer to nursing notes Bladder Incontinence: Yes Posture slightly kyphotic Neuromuscular (Tone, Coordination, Reflexes) diminished coordination due to age and dementia Sensory Vision: Wears Glasses Hearing: Impaired Sensation Right Lower Extremit: Intact Sensation Left Lower Extremity: Intact Transfers Functional [place] Measure 0=Not Assessed/NA 4=Minimal Assistance 1=Total Assistance 5=Supervision or Setup 2=Maximal Assistance 6=Modified [place] 3=Moderate Assistance 7=Complete [place] Transfers (B, C, W/C) (FIM): 4 Scootin Rollin Supine to/from Sit: 4 Sit to/from Stand: 4 Gait Mode of Locomotion: Walk Anticipated Mode of Locomotion: Walk Gait (FIM): 2 Distance (FIM): 2=261-11 ft Distance: 50' Gait Level of Assist: 4 Gait Persons Needed: 1 Gait Assistive Device: FWW Comments/Gait Description increase SOA with ambulation with FWW on 3L O2 NC; functional gait sequence Balance Sitting Static: Fair Sitting Dynamic: Fair Standing Static: Fair Standing Dynamic: Fair Assessment/Needs 86 y.o. female, improved status from previous evaluation, will benefit from skilled PT to address functional strength and mobility to improve current LOF and to return to [facility] for continued care. Rehab Potential: Fair PT Mcc Goals Metal Burnisher Goals PT Mcc Goals Time Frame: Jan 01, 2017 Transfers (B,C,W/C) (FIM): 5 Gait (FIM): 2 Gait distance (FIM): 0=549-03 ft Distance: 75' Gait Level of Assist: 5 Gait Assistive Device: FWW PT Plan Problem List Problem List: Activity Tolerance, Functional Strength, Safety Treatment/Plan Treatment Plan: Continue Plan of Care Treatment Plan: Bed Mobility, Education, Functional Activity Nelly, Functional Strength, Gait, Safety, Therapeutic Exercise, Transfers Treatment Duration: Jan 01, 2017 # of days/week 5-6 Pt/Family Agrees w/Plan: Yes Safety Risks/Education Patient Education: Safety Issues Teaching Recipient: Patient, Family Teaching Methods: Discussion Response to Teaching: Verbalize Understanding Time/GCodes Time In: 945 Time Out: 1000 Total Billed Treatment Time: 15 Total Billed Treatment 1 visit Re-evaluation 15 min G Codes Necessary: STEFFANIE Alfaro PT Dec 27, 2016 10:26
--- NOTE | 2016-12-27 11:15 | Progress Note-Hospitalist ---
Progress Note HPI/CC on Admission CC: Hypoxia HPI: This is an 86yoWF pt from [facility] that presented to ER with hypoxia and confusion since a recent fall. She had increased SOB even after CT scans obtained after fall but now she is hypoxic with ATX/infiltrate of the right upper lobe consistent with pneumonia causing hypoxia. Pt is DNR. Chart Review: WBC normal at 9 Hgb 10.5 Creat improved at 1.33 from 1.42 Liver enzymes normal UA normal Patient Interview: Pt states that she has significant pain on her right side. Pt does not remember on which side she fell. Physical exam was stable. Pt was unable to roll over during physical exam. Pt was tired during visit. Scribed by Panda Rios under the direct supervision of Dr. Julien. Progress Notes/Assess & Plan Date Seen 12/27/16 Admission Dx/Process Assessment: Pneumonia with hypoxia Falls Chronic pain Dementia HTN COPD Anxiety HLP Severe debility with inability to motivate consulting palliative care Diagonsis/Assessment & Plan Chart Review: Repeat CXR yesterday showed pneumonia. Pt has been started on antibiotics. No fever Vitals stable WBC now 11 Hgb 10.7 CMP normal except Creat 1.43 Patient Interview: Pt states that she feels good today. Dr. Julien discusses pneumonia findings with pt, and encourages pt to breathe deeply and use IS when able. Pt has been using IS occasionally. Physical exam stable. Pt had some difficulty sitting up during exam. Pt denies need for stronger pain meds. Pt denies having BM. Dr. Julien informs pt that pneumonia treatment will commence and pt will begin working with PT. No fever, vital signs stable, pleasant, up in chair, daughter at the bedside, much improved Regular rate and rhythm, clear to auscultation bilaterally but distant breath sounds in the bases No edema Scribed by Panda Rios under the direct supervision of Dr. Julien. Assessment: Pneumonia facility acquired likely due to atelectasis from rib fractures from fall Advanced dementia prognosis long-term is poor Leukocytosis COPD Hypertension Constipation Plan: PT Pt using IS more frequently Plan for DC to [facility] Friday. Maintain oxygen Maintain IV steroids Maintain nebulizers Bowel regimen JANE JULIEN DO Dec 27, 2016 11:15
[2016-12-27] MEDS ORDERED: LACTULOSE SYRUP 10GM/15ML (ENULOSE) 30ML UDC PO PRN (11:45)
[2016-12-27 11:58] VITALS: BP 109/54
[2016-12-27] MEDS: HYDROcodone/APAP 10 MG/325 MG (LORTAB) TAB PO PRN (12:56)
[2016-12-27] MEDS: POLYETHYLENE GLYCOL 17 GM (MIRALAX) PACK PO SCH ×2 (12:57→20:20)
[2016-12-27] MEDS: CEFEPIME INJECTION 2,000 MG in NS (IVPB) 50 ML IV SCH (14:44)
[2016-12-27 16:27] VITALS: BP 125/68
[2016-12-27 20:12] VITALS: BP 130/64
[2016-12-27] MEDS: MONTELUKAST 10 MG (SINGULAIR) TAB PO SCH (20:21)
[2016-12-27] MEDS: SIMvastatin 40 MG (ZOCOR) TAB PO SCH (20:21)
[2016-12-28] VITALS: BP 114/56
[2016-12-28] MEDS: methylPREDNISolone 40 MG/ML (Solu-MEDROL) VIAL IV SCH ×5 (00:12→23:54)
[2016-12-28] MEDS: fentaNYL INJECTION 100 MCG/2 ML AMP IV PRN (00:12)
[2016-12-28] MEDS: RT-ALBUTEROL SULF 2.5 MG/3 ML PRE-MIX VIAL INH SCH ×6 (02:17→22:01)
[2016-12-28] MEDS: HYDROcodone/APAP 10 MG/325 MG (LORTAB) TAB PO PRN ×2 (04:19→12:36)
[2016-12-28 06:15] LABS: BASOPHILS % (AUTO) 0 % (0-10); EOSINOPHILS % (AUTO) 0 % (0-10); LYMPHOCYTES # (AUTO) 0.8 X 10^3 (1.0-4.0); LYMPHOCYTES % (AUTO) 4 % (12-44); MEAN CORPUSCULAR HEMOGLOBIN 31 PG (25-34); MEAN CORPUSCULAR HGB CONC 33 G/DL (32-36); MEAN CORPUSCULAR VOLUME 95 FL (80-99); MEAN PLATELET VOLUME 10.7 FL (7.4-10.4); MONOCYTES # (AUTO) 0.9 X 10^3 (0.0-1.0); MONOCYTES % (AUTO) 4 % (0-12); NEUTROPHILS # (AUTO) 19.1 X 10^3 (1.8-7.8); NEUTROPHILS % (AUTO) 92 % (42-75); PLATELET COUNT 254 10^3/uL (130-400); RED BLOOD COUNT 3.51 10^6/uL (4.35-5.85); RED CELL DISTRIBUTION WIDTH 13.4 % (10.0-14.5); WHITE BLOOD COUNT 20.7 10^3/uL (4.3-11.0)
[2016-12-28] MEDS: FUROSEMIDE 40 MG (LASIX) TAB PO SCH (06:15)
[2016-12-28] MEDS: CATHETER FLUSH 10 ML SYR IV SCH ×3 (06:16→20:22)
[2016-12-28 06:30] LABS: BAND NEUTROPHILS 2 %; BASOPHILS % (MANUAL) 0 %; EOSINOPHILS % (MANUAL) 0 %; LYMPHOCYTES % (MANUAL) 5 %; NEUTROPHILS % (MANUAL) 85 %; POLYCHROMASIA SLIGHT; REACTIVE LYMPHOCYTES 2 %
[2016-12-28 06:37] LABS: ALBUMIN 3.6 G/DL (3.2-4.5); BILIRUBIN,TOTAL 0.4 MG/DL (0.1-1.0); CALCIUM 9.3 MG/DL (8.5-10.1); CREATININE SERUM 1.47 MG/DL (0.60-1.30); POTASSIUM 4.5 MMOL/L (3.6-5.0); TOTAL PROTEIN 6.3 G/DL (6.4-8.2)
[2016-12-28] MEDS: RT-BUDESONIDE NEBS 0.5 MG/2ML (PULMICORT) AMP INH SCH ×2 (07:02→18:25)
[2016-12-28 08:15] VITALS: BP 143/65
--- NOTE | 2016-12-28 08:28 | Physical Therapy Daily Note ---
PT Daily Note-Current Subjective States that she is doing okay. Pain Numeric Pain Scale: 5-Moderate Pain Location: Right Location Body Site: Shoulder Transfers Functional [place] Measure 0=Not Assessed/NA 4=Minimal Assistance 1=Total Assistance 5=Supervision or Setup 2=Maximal Assistance 6=Modified [place] 3=Moderate Assistance 7=Complete IndependenceIRFPAI Quality Coding Scale 6 Independent with activity with or without an assistive device 5 Patient requires set up or clean up by helper. Patient completes activity by themselves 4 Supervision or touching assist (CGA). [place] provide cues , steadying assist 3 The helper provides less than half the effort to complete the activity 2 The helper provides more than half the effort to complete the activity 1 Dependent. The helper does all the effort to complete an activity 7 Patient refused to complete or attempt activity 9 The patient did not perform the activity before the current illness or injury 88 Not attempted due to Medical conditions or safety concerns Transfers (B, C, W/C) (FIM): 5 Sit to/from Stand: 5 Gait Training Gait (FIM): 2 Distance (FIM): 1=830-23 ft Distance: 100' Gait Level of Assist: 5 Gait Persons Needed: 1 Gait Assistive Device: FWW Exercises Seated Therapy Exercises: Ankle pumps, Long arc quads, Hip flexion Seated Reps: 10 Assessment Current Status: Excellent Progress Patient had some SOB during gait. PT Penitentiary Goals Penitentiary Goals PT Floatlight Loading Supervisor Goals Time Frame: Jan 01, 2017 Transfers (B,C,W/C) (FIM): 5 Gait (FIM): 2 Gait distance (FIM): 5=499-59 ft Distance: 75' Gait Level of Assist: 5 Gait Assistive Device: FWW PT Plan Treatment/Plan Treatment Plan: Continue Plan of Care Treatment Plan: Bed Mobility, Education, Functional Activity Nelly, Functional Strength, Gait, Safety, Therapeutic Exercise, Transfers Treatment Duration: Jan 01, 2017 Time/GCodes Time In: 0810 Time Out: 0825 Total Billed Treatment Time: 15' Total Billed Treatment 1, GT x 15 G Codes Necessary: CARMEN Weir PT Dec 28, 2016 08:28
[2016-12-28] MEDS: ALPRAZolam 0.5 MG (XANAX) TAB PO SCH ×3 (08:50→20:18)
[2016-12-28] MEDS: POLYETHYLENE GLYCOL 17 GM (MIRALAX) PACK PO SCH ×2 (08:50→20:18)
[2016-12-28] MEDS: cloNIDine 0.1 MG (CATAPRES) TAB PO SCH ×2 (08:50→20:19)
[2016-12-28] MEDS: LOSARTAN 50 MG (COZAAR) TAB PO SCH (08:50)
[2016-12-28] MEDS: KCL 20 MEQ TAB (K-DUR) PO SCH ×2 (08:51→20:18)
[2016-12-28] MEDS: guaiFENesin (MUCINEX) 600 MG TAB PO SCH ×2 (08:51→20:18)
[2016-12-28] MEDS: ASPIRIN E.C. 81 MG (ECOTRIN) TAB PO SCH (08:51)
[2016-12-28] MEDS: PRASUGREL 10 MG (EFFIENT) TABLET PO SCH (08:51)
[2016-12-28 12:00] VITALS: BP 117/68
[2016-12-28] MEDS: LEVOFLOXACIN 750 MG/150 ML IV 150 ML IV SCH (12:36)
[2016-12-28] MEDS: CEFEPIME INJECTION 2,000 MG in NS (IVPB) 50 ML IV SCH (14:15)
[2016-12-28 16:29] VITALS: BP 121/57
--- NOTE | 2016-12-28 17:04 | Progress Note-Hospitalist ---
Standard Progress Note Progress Notes/Assess & Plan Date Seen 12/28/16 Diagnosis Assessment: Pneumonia with hypoxia Falls Chronic pain Dementia HTN COPD Anxiety HLP Severe debility with inability to motivate consulting palliative care Assess & Plan/Chief Complaint The patient is afebrile. She has no complaints today. She states she is feeling considerably better. She was able to sit up in the chair for an hour. She has no particular cough. Her SaO2 is a running in the 90s with nasal cannula oxygen. Physical exam: Her color is good and she appears alert. Lungs showed distant breath sounds. CV is regular without murmur. Abdomen is soft. There is no pedal edema. Impression: Pneumonia improving Plan: Immobilize. Continue present antibiotics. Labs Laboratory Tests 12/27/16 05:00 12/28/16 05:30 ILDA SALCIDO MD Dec 28, 2016 17:04
[2016-12-28 20:17] VITALS: BP 124/64
[2016-12-28] MEDS: MONTELUKAST 10 MG (SINGULAIR) TAB PO SCH (20:19)
[2016-12-28] MEDS: SIMvastatin 40 MG (ZOCOR) TAB PO SCH (20:19)
[2016-12-29] VITALS: BP 133/70
[2016-12-29] MEDS: RT-ALBUTEROL SULF 2.5 MG/3 ML PRE-MIX VIAL INH SCH ×6 (02:13→22:01)
[2016-12-29] MEDS: HYDROcodone/APAP 10 MG/325 MG (LORTAB) TAB PO PRN ×2 (04:29→22:59)
[2016-12-29] MEDS: methylPREDNISolone 40 MG/ML (Solu-MEDROL) VIAL IV SCH ×4 (06:30→23:00)
[2016-12-29] MEDS: CATHETER FLUSH 10 ML SYR IV SCH ×3 (06:30→21:30)
[2016-12-29] MEDS: FUROSEMIDE 40 MG (LASIX) TAB PO SCH (06:30)
[2016-12-29] MEDS: RT-BUDESONIDE NEBS 0.5 MG/2ML (PULMICORT) AMP INH SCH ×2 (06:59→18:26)
[2016-12-29 08:00] VITALS: BP 106/52
[2016-12-29] MEDS: PRASUGREL 10 MG (EFFIENT) TABLET PO SCH (08:27)
[2016-12-29] MEDS: ASPIRIN E.C. 81 MG (ECOTRIN) TAB PO SCH (08:27)
[2016-12-29] MEDS: KCL 20 MEQ TAB (K-DUR) PO SCH ×2 (08:28→21:28)
[2016-12-29] MEDS: LOSARTAN 50 MG (COZAAR) TAB PO SCH (08:28)
[2016-12-29] MEDS: guaiFENesin (MUCINEX) 600 MG TAB PO SCH ×2 (08:28→21:28)
[2016-12-29] MEDS: ALPRAZolam 0.5 MG (XANAX) TAB PO SCH ×3 (08:28→21:30)
[2016-12-29] MEDS: cloNIDine 0.1 MG (CATAPRES) TAB PO SCH ×2 (08:28→21:29)
[2016-12-29] MEDS: POLYETHYLENE GLYCOL 17 GM (MIRALAX) PACK PO SCH ×2 (08:29→21:00)
[2016-12-29 11:52] LABS: BASOPHILS % (AUTO) 0 % (0-10); EOSINOPHILS % (AUTO) 0 % (0-10); LYMPHOCYTES # (AUTO) 0.7 X 10^3 (1.0-4.0); LYMPHOCYTES % (AUTO) 5 % (12-44); MEAN CORPUSCULAR HEMOGLOBIN 31 PG (25-34); MEAN CORPUSCULAR HGB CONC 32 G/DL (32-36); MEAN CORPUSCULAR VOLUME 96 FL (80-99); MONOCYTES # (AUTO) 0.9 X 10^3 (0.0-1.0); MONOCYTES % (AUTO) 7 % (0-12); NEUTROPHILS # (AUTO) 12.3 X 10^3 (1.8-7.8); NEUTROPHILS % (AUTO) 88 % (42-75); PLATELET COUNT 251 10^3/uL (130-400); RED BLOOD COUNT 3.45 10^6/uL (4.35-5.85); RED CELL DISTRIBUTION WIDTH 13.8 % (10.0-14.5); WHITE BLOOD COUNT 13.9 10^3/uL (4.3-11.0)
--- NOTE | 2016-12-29 12:52 | Progress Note-Hospitalist ---
Standard Progress Note Progress Notes/Assess & Plan Date Seen 12/29/16 Diagnosis Assessment: Pneumonia with hypoxia Falls Chronic pain Dementia HTN COPD Anxiety HLP Severe debility with inability to motivate consulting palliative care Assess & Plan/Chief Complaint The patient reports that she is quite comfortable. She has been able to be up to the bathroom. She seems pleasantly confused. She has no complaints of pain. Physical exam: Her color is good. Lungs show distant breath sounds but are clear. CV is regular without murmur. Extremities show no pedal edema. Impression: Pneumonia with evidence of improvement. 2.dementia. Labs Laboratory Tests 12/28/16 05:30 12/29/16 11:45 ILDA SALCIDO MD Dec 29, 2016 12:52
[2016-12-29] MEDS: SALINE NASAL SPRAY (OCEAN) 45 ML BTL NS PRN (14:45)
[2016-12-29] MEDS: CEFEPIME INJECTION 2,000 MG in NS (IVPB) 50 ML IV SCH (14:45)
[2016-12-29 16:08] VITALS: BP 130/62
[2016-12-29 21:16] VITALS: BP 140/62
[2016-12-29] MEDS: MONTELUKAST 10 MG (SINGULAIR) TAB PO SCH (21:29)
[2016-12-29] MEDS: SIMvastatin 40 MG (ZOCOR) TAB PO SCH (21:29)
[2016-12-29 23:55] VITALS: BP 138/60
[2016-12-30] MEDS: RT-ALBUTEROL SULF 2.5 MG/3 ML PRE-MIX VIAL INH SCH ×3 (02:17→10:23)
[2016-12-30] MEDS: FUROSEMIDE 40 MG (LASIX) TAB PO SCH (05:41)
[2016-12-30] MEDS: CATHETER FLUSH 10 ML SYR IV SCH ×2 (05:41→12:36)
[2016-12-30] MEDS: methylPREDNISolone 40 MG/ML (Solu-MEDROL) VIAL IV SCH ×2 (05:41→12:30)
[2016-12-30] MEDS: RT-BUDESONIDE NEBS 0.5 MG/2ML (PULMICORT) AMP INH SCH (06:24)
[2016-12-30 08:21] VITALS: BP 125/49
[2016-12-30] MEDS: guaiFENesin (MUCINEX) 600 MG TAB PO SCH (09:29)
[2016-12-30] MEDS: PRASUGREL 10 MG (EFFIENT) TABLET PO SCH (09:29)
[2016-12-30] MEDS: ALPRAZolam 0.5 MG (XANAX) TAB PO SCH ×2 (09:29→12:31)
[2016-12-30] MEDS: ASPIRIN E.C. 81 MG (ECOTRIN) TAB PO SCH (09:29)
[2016-12-30] MEDS: LOSARTAN 50 MG (COZAAR) TAB PO SCH (09:29)
[2016-12-30] MEDS: KCL 20 MEQ TAB (K-DUR) PO SCH (09:29)
[2016-12-30] MEDS: CYANOCOBALAMIN 500 MCG TAB (VITAMIN B-12) PO SCH (09:29)
[2016-12-30] MEDS: POLYETHYLENE GLYCOL 17 GM (MIRALAX) PACK PO SCH (09:30)
[2016-12-30] MEDS: cloNIDine 0.1 MG (CATAPRES) TAB PO SCH (09:30)
--- NOTE | 2016-12-30 10:23 | Discharge Summary-Hospitalist ---
Diagnosis/Chief Complaint Date of Admission Dec 25, 2016 at 21:54 Date of Discharge Admission Diagnosis Assessment: Pneumonia with hypoxia Falls Chronic pain Dementia HTN COPD Anxiety HLP Severe debility with inability to motivate consulting palliative care Discharge Diagnosis Assessment: Pneumonia facility acquired likely due to atelectasis from rib fractures from fall Advanced dementia prognosis long-term is poor Leukocytosis COPD Hypertension Constipation Reason Hospital Visit/Course CC: Hypoxia HPI: This is an 86yoWF pt from [facility] that presented to ER with hypoxia and confusion since a recent fall. She had increased SOB even after CT scans obtained after fall but now she is hypoxic with ATX/infiltrate of the right upper lobe consistent with pneumonia causing hypoxia. Pt is DNR. Chart Review: WBC normal at 9 Hgb 10.5 Creat improved at 1.33 from 1.42 Liver enzymes normal UA normal Patient Interview: Pt states that she has significant pain on her right side. Pt does not remember on which side she fell. Physical exam was stable. Pt was unable to roll over during physical exam. Pt was tired during visit. Scribed by Panda Rios under the direct supervision of Dr. Julien. 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 Pt is taking Lortab and Hydrocodone. Patient Interview: Pt states that she feels much better today. Dr. Julien discusses returning to [facility] in [place]. Dr. Julien informs pt that O2 requirements will be evaluated and antibiotic will be continued for a few days. Pt states that she is having regular BMs. Physical exam was stable. No fever, pleasant, oriented 3 but poor recall, daughter at the bedside, improved sitting in chair Regular rate and rhythm, clear to auscultation bilaterally but distant breath sounds in the bases No edema Plan: Home O2 eval DC to [facility] Skilled Omnicef x2 days Follow-up with PCP Scribed by Panda Rios under the direct supervision of Dr. Julien. Hospital course: Patient had an uneventful acute [facility] course after admitted through the emergency room and placed on treatment for resistant organism pneumonia. She tolerated the treatment well maintain on oxygen and nebulizer treatments and rapidly recovered being able to dissipate and physical therapy to try to regain strength. Overall she did well steroids caused mild leukocytosis but she remained afebrile and overall doing well and responding to treatment so she was deemed stable for discharge to the retirement on skilled therapy. Discharge Summary Discharge Physical Examination Allergies: Coded Allergies: celecoxib (Verified Allergy, Unknown, 12/25/16) iodine (Verified Allergy, Unknown, 12/25/16) Vitals & I&Os Vital Signs Date Time Temp Pulse Resp B/P Pulse Ox O2 Delivery O2 Flow Rate FiO2 12/30/16 10:50 94 2.00 12/30/16 08:21 97.6 73 20 125/49 Nasal Cannula Hospital Course Labs (last 24 hrs) Microbiology 12/26/16 Blood Culture - Preliminary, Resulted No growth 12/25/16 Urine Culture - Final, Complete Discharge Home Medications: Active Scripts Active Cefdinir 300 Mg Capsule 300 Mg PO BID Prednisone 10 Mg Tab.ds.pk 10 Mg PO DAILY Take 6 tabs(60mg)daily,decrease by 1 tab(10MG)daily. Lactulose 20 Gm/30 Ml Solution 10 Gm PO BID PRN 30 Days [place] 10-325 Tablet (Hydrocodone/Acetaminophen) 1 Each Tablet 1 Tab PO Q6H PRN Xanax (Alprazolam) 0.25 Mg Tablet 0.5 Tab PO TID Tramadol HCl 50 Mg Tablet 50 Mg PO BID Reported Nystatin 1 Each Powder.ea. TOP PRN PRN Tessalon Perle (Benzonatate) 100 Mg Capsule 100 Mg PO Q6H PRN Saline Nasal [place] (Sodium Chloride) 30 Ml [place] 1 [place] NS Q12H PRN Milk of Magnesia (Magnesium Hydroxide) 400 Mg/5 Ml Oral.susp 30 Ml PO DAILY PRN Albuterol Sulfate 2.5 Mg/3 Ml Vial.neb 2.5 Mg IH QID PRN Proair Hfa (Albuterol Sulfate) 8.5 Gm Hfa.aer.ad 2 Puff IH Q4H PRN Lasix (Furosemide) 20 Mg Tablet 20 Mg PO BID Klor-Con M20 (Potassium Chloride) 20 Meq Tab.er.prt 20 Meq PO BID Guaifenesin ER (Guaifenesin) 600 Mg Tab.er.12h 600 Mg PO BID Clonidine HCl 0.1 Mg Tablet 0.1 Mg PO BID Calcium 600 + Vit D 800 Tab (Calcium Carbonate/Vitamin D3) 1 Each Tablet 1 Tab PO BID Vitamin C (Ascorbate Calcium) 500 Mg Tablet 500 Mg PO DAILY Vitamin B-12 (Cyanocobalamin (Vitamin B-12)) 500 Mcg Tablet 500 Mcg PO MOWEFR Singulair (Montelukast Sodium) 10 Mg Tablet 10 Mg PO HS Simvastatin 40 Mg Tablet 40 Mg PO HS Miralax (Polyethylene Glycol 3350) 17 Gm Powd.pack 17 Gm PO MOTH Losartan Potassium 100 Mg Tablet 100 Mg PO DAILY HOLD IF SBP < 100, CONTACT PCP IF SBP>180, DBP >100 Effient (Prasugrel HCl) 10 Mg Tablet 5 Mg PO DAILY TAKES 1/2 (10MG) TABLET Aspirin EC (Aspirin) 81 Mg Tablet. 81 Mg PO DAILY Instructions to patient/family Please see electonic discharge instructions given to patient. Clinical Quality Measures DVT/VTE Risk/Contraindication: Risk Factor Score Per Nursin RFS Level Per Nursing on Admit: 4+=Very High JANE JULIEN DO Dec 30, 2016 10:23 Guaifenesin ER (Guaifenesin) 600 Mg Tab.er.12h 600 Mg PO BID Clonidine HCl 0.1 Mg Tablet 0.1 Mg PO BID Calcium 600 + Vit D 800 Tab (Calcium Carbonate/Vitamin D3) 1 Each Tablet 1 Tab PO BID Vitamin C (Ascorbate Calcium) 500 Mg Tablet 500 Mg PO DAILY Vitamin B-12 (Cyanocobalamin (Vitamin B-12)) 500 Mcg Tablet 500 Mcg PO MOWEFR Singulair (Montelukast Sodium) 10 Mg Tablet 10 Mg PO HS Simvastatin 40 Mg Tablet 40 Mg PO HS Miralax (Polyethylene Glycol 3350) 17 Gm Powd.pack 17 Gm PO MOTH Losartan Potassium 100 Mg Tablet 100 Mg PO DAILY HOLD IF SBP < 100, CONTACT PCP IF SBP>180, DBP >100 Effient (Prasugrel HCl) 10 Mg Tablet 5 Mg PO DAILY TAKES 1/2 (10MG) TABLET Aspirin EC (Aspirin) 81 Mg Tablet. 81 Mg PO DAILY Instructions to patient/family Please see electonic discharge instructions given to patient. Clinical Quality Measures DVT/VTE Risk/Contraindication: Risk Factor Score Per Nursin RFS Level Per Nursing on Admit: 4+=Very High JANE JULIEN DO Dec 30, 2016 10:23
[2016-12-30] MEDS ORDERED: PRED10TA22 PO (10:38)
[2016-12-30] MEDS ORDERED: ALPR0.25 PO (10:38)
[2016-12-30] MEDS ORDERED: CEFD300C3 PO (10:38)
[2016-12-30] MEDS ORDERED: HYDR-753 PO (10:38)
[2016-12-30] MEDS ORDERED: LACT20SO2 PO (10:38)
[2016-12-30] MEDS ORDERED: TRAM50TA2 PO (10:38)
--- NOTE | 2016-12-30 10:40 | Discharge Inst-Skilled Nursing ---
Discharge Inst-Skilled NF Patient Instructions Patient Problems: Pneumonia COPD w/hypoxia Goal: Strengthen Consult/Follow Up/Orders Follow Up Appt.: Dr Park in 2 weeks Skilled NF Admit to: [facility] (SNF) I certify that SNF services are required to be given on an inpatient basis because of the above named patient's need for assisted care on a continuing basis for the conditions(s) for which he/she was receiving inpatient hospital services prior to his/her transfer to the SNF. Correction Facility Order: Nursing Services, Auto Seat Cover Installer-Evaluate & Treat, Physical Therapy-Evaluate & Treat, Speech Language-Evaluate & Treat Discharge Diet: Cardiac Diet Daily Activity as Tolerated: Yes New & Resume Previous Orders Tiffanie Julien Dec 30, 2016 10:39 TIFFANIE JULIEN DO Dec 30, 2016 10:40
[2016-12-30] MEDS: LEVOFLOXACIN 750 MG/150 ML IV 150 ML IV SCH (12:30)
--- NOTE | 2016-12-30 13:20 | Physical Therapy Progress Note ---
Therapy Progress Note Pt is to discharge today per nursing. Pt declined PT tx and did not have any questions for Education items. PT encouraged pt to continue to sit up and continue mobility to prevent Pneumonia. 1 visit, no tx DIANE MCMANUS PTA Dec 30, 2016 13:20
== END 2016-12-30 14:00 | DRG 190 ==
LOC: EDUNIT# 17:17 → ER 17:18 → 4TH 21:54
PROVIDERS: ADMIT Internal Medicine; ATTEND Internal Medicine
DX: J44.0 Chronic obstructive pulmonary disease with (acute) lower respiratory infection (principal); J18.9 Pneumonia, unspecified organism; S22.31XA Fracture of one rib, right side, initial encounter for closed fracture; R09.02 Hypoxemia; J98.11 Atelectasis; J45.909 Unspecified asthma, uncomplicated; I12.9 Hypertensive chronic kidney disease with stage 1 through stage 4 chronic kidney disease, or unspecified chronic kidney disease; N18.3 Chronic kidney disease, stage 3 (moderate); S20.221A Contusion of right back wall of thorax, initial encounter; Z66 Do not resuscitate; E78.5 Hyperlipidemia, unspecified; F41.9 Anxiety disorder, unspecified; D72.829 Elevated white blood cell count, unspecified; M19.91 Primary osteoarthritis, unspecified site; F03.90 Unspecified dementia, unspecified severity, without behavioral disturbance, psychotic disturbance, mood disturbance, and anxiety; I87.8 Other specified disorders of veins; K59.00 Constipation, unspecified; G89.29 Other chronic pain; R53.81 Other malaise; Z87.891 Personal history of nicotine dependence; W19.XXXA Unspecified fall, initial encounter
CPT/HCPCS: 36415; 70450; 71020; 71250; 72128; 72131; 72170; 74176; 76705; 80053; 81000; 83605; 83690; 85007; 85025; 85027; 87040; 87088; 94640; 94664; 94760; 94761; 96361; 96374; 96375

== ENCOUNTER 2017-10-07 01:08 | Emergency (ER) | payer MEDICARE, OTHER, MEDICAID ==
[~2017-10-07] VITALS: Ht 149.9 cm; Wt 78.1 kg
[~2017-10-07 01:08] MED LIST changes: -GUAI600T59 PO; +GUAI600T86 PO
--- NOTE | 2017-10-07 01:45 | ED Fall/Injury ---
General Chief Complaint: Trauma-Non Activation Source: EMS, detention records Exam Limitations: other (PT WITH DEMENTIA AND IS UNABLE TO GIVE ANY INFORMATION AND NO CALL / REPORT FROM [facility]) History of Present Illness Time seen by provider: 01:09 Initial Comments PT ARRIVES VIA EMS FROM [facility] IN [place]-NO IMMOBILIZATION PT SLEEPS IN A RECLINER NORMALLY AND STAFF MEMBER WAS WALKING BY HER ROOM AND OBSERVED PT FALL OUT OF THE RECLINER, ONTO HER RIGHT SIDE DID HIT HER HEAD, BUT NO LOSS OF CONSCIOUSNESS EMS REPORT THAT INITIALLY PT HAD NO C/O PAIN, THEN ENROUTE, C/O RIGHT UPPER ARM PAIN, WHICH IS CHRONIC FOR YEARS. PT ALSO BEGAN TO C/O HEAD PAIN PT HAS SEVERE DEMENTIA, AND PT'S MENTAL STATUS IS AT HER NORMAL BASELINE, PER EMS FROM [facility]FF UNABLE TO OBTAIN ANY OTHER RELEVANT INFORMATION PCP: DR. RUBY Allergies and Home Medications Allergies Coded Allergies: celecoxib (Verified Allergy, Unknown, 12/25/16) iodine (Verified Allergy, Unknown, 12/25/16) Home Medications Albuterol Sulfate 8.5 Gm Hfa.aer.ad, 2 PUFF IH Q4H PRN for SHORTNESS OF BREATH, (Reported) Albuterol Sulfate 2.5 Mg/3 Ml Vial.neb, 2.5 MG IH QID PRN for SHORTNESS OF BREATH, (Reported) Alprazolam 0.25 Mg Tablet, 0.5 TAB PO TID, #30 Prescribed by: JANE NDIAYE on 12/30/16 1038 Ascorbate Calcium 500 Mg Tablet, 500 MG PO DAILY, (Reported) Aspirin 81 Mg Tablet.dr, 81 MG PO DAILY, (Reported) Benzonatate 100 Mg Capsule, 100 MG PO Q6H PRN for COUGH, (Reported) Calcium Carbonate/Vitamin D3 1 Each Tablet, 1 TAB PO BID, (Reported) Cefdinir 300 Mg Capsule, 300 MG PO BID, #4 Prescribed by: JANE NDIAYE on 12/30/16 1038 Cefdinir 300 Mg Capsule, 300 MG PO BID, #20 Prescribed by: BRAULIO GARCÍA on 10/07/17 0222 Clonidine HCl 0.1 Mg Tablet, 0.1 MG PO BID, (Reported) Cyanocobalamin (Vitamin B-12) 500 Mcg Tablet, 500 MCG PO MoWeFr, (Reported) Furosemide 20 Mg Tablet, 20 MG PO BID, (Reported) Guaifenesin 600 Mg Tab.er.12h, 600 MG PO BID, (Reported) Hydrocodone/Acetaminophen 1 Each Tablet, 1 TAB PO Q6H PRN for PAIN, #30 Prescribed by: JANE NDIAYE on 12/30/16 1038 Lactulose 20 Gm/30 Ml Solution, 10 GM PO BID PRN for CONSTIPATION for 30 Days Prescribed by: JANE NDIAYE on 12/30/16 1038 Losartan Potassium 100 Mg Tablet, 100 MG PO DAILY, (Reported) HOLD IF SBP < 100, CONTACT PCP IF SBP>180, DBP >100 Magnesium Hydroxide 400 Mg/5 Ml Oral.susp, 30 ML PO DAILY PRN for CONSTIPATION, (Reported) Montelukast Sodium 10 Mg Tablet, 10 MG PO HS, (Reported) Nystatin 1 Each Powder.ea., TOP PRN PRN for GAULDING, (Reported) Polyethylene Glycol 3350 17 Gm Powd.pack, 17 GM PO MoTh, (Reported) Potassium Chloride 20 Meq Tab.er.prt, 20 MEQ PO BID, (Reported) Prasugrel HCl 10 Mg Tablet, 5 MG PO DAILY, (Reported) TAKES 1/2 (10MG) TABLET Prednisone 10 Mg Tab.ds.pk, 10 MG PO DAILY, #21 Take 6 tabs(60mg)daily,decrease by 1 tab(10MG)daily. Prescribed by: JANE NDIAYE on 12/30/16 1038 Simvastatin 40 Mg Tablet, 40 MG PO HS, (Reported) Sodium Chloride 30 Ml [place], 1 SPRAY NS Q12H PRN for CONGESTION, (Reported) Tramadol HCl 50 Mg Tablet, 50 MG PO BID, #60 Prescribed by: JANE NDIAYE on 12/30/16 1038 Constitutional: other (UNABLE TO OBTAIN FROM PT) Past Lpfhrph-Fptzeg-Wezrrz Hx Patient Social History Type Used: Cigarettes Recent Hopitalizations: No Immunizations Up To Date Date of Pneumonia Vaccine: Aug 24, 2015 Date of Influenza Vaccine: Aug 24, 2016 Seasonal Allergies Seasonal Allergies: Yes Surgeries History of Surgeries: Yes Respiratory History of Respiratory Disorde: Yes Respiratory Disorders: COPD Cardiovascular History of Cardiac Disorders: Yes Cardiac Disorders: Chronic Edema/Swelling, Coronary Artery Disease, High Cholesterol, Hypertension Neurological History of Neurological Disord: Yes Neurological Disorders: Dementia 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 Genitourinary History of Genitourinary Disor: Yes Genitourinary Disorders: Renal Failure Gastrointestinal History of Gastrointestinal Di: Yes Gastrointestinal Disorders: Gastroesophageal Reflux, Chronic Constipation, Diverticulosis, Hiatal Hernia Musculoskeletal History of Musculoskeletal Dis: Yes (CHRONIC RIGHT ARM/SHOULDER PAIN; CHRONIC KNEE PAIN; POOR AMBULATION;GENERALIZED WEAKNESS ; FREQUENT FALLS) Musculoskeletal Disorders: Osteoporosis, Arthritis Endocrine History of Endocrine Disorders: No (VITAMIN DEFICIENCY; HYPOKALEMIA) HEENT History of HEENT Disorders: No Cancer History of Cancer: No Psychosocial History of Psychiatric Problem: Yes (DEMENTIA; BIPOLAR WITH MANIC-SEVERE WITH PSYCHOTIC FEATURES) Behavioral Health Disorders: Sleep Difficulties, Anxiety, Bipolar, Depression Integumentary History of Skin or Integumenta: No Blood Transfusions History of Blood Disorders: No Adverse Reaction to a Blood Tr: No Physical Exam Vital Signs Vital Sign - Last 12Hours Capillary Refill : General Appearance: WD/WN, no apparent distress HEENT: PERRL/EOMI, other (NO EXTERNAL EVIDENCE OF TRAUMA, BUT HAS TENDERNESS TO RIGHT POSTERIOR PARIETAL AREA) Neck: non-tender, full range of motion, supple Cardiovascular: regular rate, rhythm, no murmur Respiratory: chest non-tender, no respiratory distress, no accessory muscle use , rales (BIBASILAR RALES--RIGHT > LEFT) Peripheral Pulses: 1+ Dorsalis Pedis (R), 1+ Left Dors-Pedis (L), 1+ Radial Pulses (R), 1+ Radial Pulses (L) Gastrointestinal: non tender, soft Back: normal inspection, no CVA tenderness, no vertebral tenderness Extremities: other (RIGHT LEG SHORTENED AND EXTERNALLY ROTATED. TENDERNESS TO RIGHT HIP) Neurologic/Psychiatric: no motor/sensory deficits (GROSSLY INTACT), alert, normal mood/affect, disoriented x 3, other (PT HAS DIFFICULTY FOLLOWING SIMPLE COMMANDS) Skin: normal color, warm/dry, other (NO EXTERNAL EVIDENCE OF TRAUMA ANYWHERE) [place] Coma Score Best Eye Response: (4) Open Spontaneously Progress/Results/Core Measures Results/Orders Lab Results Laboratory Tests Test 10/07/17 01:20 Range/Units White Blood Count 8.4 4.3-11.0 10^3/uL Red Blood Count 4.20 L 4.35-5.85 10^6/uL Hemoglobin 13.1 11.5-16.0 G/DL Hematocrit 40 35-52 % Mean Corpuscular Volume 95 80-99 FL Mean Corpuscular Hemoglobin 31 25-34 PG Mean Corpuscular Hemoglobin Concent 33 32-36 G/DL Red Cell Distribution Width 13.2 10.0-14.5 % Platelet Count 210 130-400 10^3/uL Mean Platelet Volume 11.1 H 7.4-10.4 FL Neutrophils (%) (Auto) 55 42-75 % Lymphocytes (%) (Auto) 24 12-44 % Monocytes (%) (Auto) 12 0-12 % Eosinophils (%) (Auto) 7 0-10 % Basophils (%) (Auto) 1 0-10 % Neutrophils # (Auto) 4.7 1.8-7.8 X 10^3 Lymphocytes # (Auto) 2.0 1.0-4.0 X 10^3 Monocytes # (Auto) 1.0 0.0-1.0 X 10^3 Eosinophils # (Auto) 0.6 H 0.0-0.3 10^3/uL Basophils # (Auto) 0.1 0.0-0.1 10^3/uL Sodium Level 141 135-145 MMOL/L Potassium Level 4.5 3.6-5.0 MMOL/L Chloride Level 106 98-107 MMOL/L Carbon Dioxide Level 24 21-32 MMOL/L Anion Gap 11 5-14 MMOL/L Blood Urea Nitrogen 17 7-18 MG/DL Creatinine 1.52 H 0.60-1.30 MG/DL Estimat Glomerular Filtration Rate 32 BUN/Creatinine Ratio 11 Glucose Level 102 70-105 MG/DL Calcium Level 10.3 H 8.5-10.1 MG/DL My Orders Orders - BRAULIO GARCÍA DO Saline Lock/Iv-Start (10/07/17 01:14) Ct Head/Cervical Spine Wo (10/07/17 01:14) Chest 1 View, Ap/Pa Only (10/07/17 01:14) Humerus, Right, 2 Views (10/07/17 01:14) Pelvis With Right Hip 2-3views (10/07/17 01:14) Cbc With Automated Diff (10/07/17 02:10) Basic Metabolic Panel (10/07/17 02:11) Ceftriaxone Injection (Rocephin Injectio (10/07/17 02:30) Medications Given in ED Current Medications Medications Dose Ordered Sig/Magalis Route Start Time Stop Time Status Last Admin Dose Admin Ceftriaxone Sodium 1000 mg/ Sodium Chloride 50 ml @ 100 mls/hr ONCE ONCE IV 10/07/17 02:30 10/07/17 02:59 DC 10/07/17 03:14 100 MLS/HR Vital Signs/I&O Vital Sign - Last 12Hours 10/07/17 10/07/17 01:09 01:09 Temp 97.1 97.1 Pulse 59 59 Resp 20 20 B/P (MAP) 184/81 184/81 (115) Pulse Ox 94 94 O2 Delivery Room Air Room Air Progress Note : Progress Note PT SLEPT / RESTED QUIETLY THROUGHOUT ENTIRE ER STAY PT STATES SHE IS FEELING BETTER ON RETURN FROM XRAY DEPT NO COUGH, NO DYSPNEA OR LOW O2 SATS AT ANY TIME DURING ER STAY Diagnostic Imaging Comments PELVIS/ RIGHT HIP=--NO FX OR DISLOCATION, LEFT HIP REPLACEMENT HARDWARE INTACT RIGHT HUMERUS--NO ACUTE PROCESS, ARTHRITIC CHANGES CXR--BIBASILAR ATELECTASIS/INFILTRATES ALL PENDING RADIOLOGIST REVIEW CT HEAD/CERVICAL SPINE--CHRONIC / STABLE AND POST OP CHANGES, NO ACUTE PROCESS, PER [facility] VIA FAX @ [id number] Reviewed: Reviewed by Me Departure Impression Impression: Primary Impression: Accidental fall from chair or bed Additional Impressions: Minor head injury without loss of consciousness Chronic pain of right upper extremity Contusion of right hip, initial encounter Dementia BIBASILAR INFILTRATES Disposition: 03 XFER SNF Condition: Stable Departure-Patient Inst. Referrals: EMA RUBY MD (PCP/Family) Primary Care Physician Patient Instructions: Community-Acquired Pneumonia, Adult (DC), Contusion (DC) , Minor Head Injury (DC) Add. Discharge Instructions: CONTINUE YOUR REGULAR MEDICATIONS TYLENOL NEEDED FOR PAIN FOLLOW UP WITH DR. RUBY IN 3-4 DAYS FOR FURTHER CARE All discharge instructions reviewed with patient and/or family. Voiced understanding. Scripts Cefdinir (Cefdinir) 300 Mg Capsule 300 MG PO BID for FOR INFECTION, #20 CAP Prov: BRAULIO GARCÍA DO 10/07/17 BRAULIO GARCÍA DO Oct 07, 2017 01:45
[2017-10-07 02:15] LABS: BASOPHILS # (AUTO) 0.1 10^3/uL (0.0-0.1); BASOPHILS % (AUTO) 1 % (0-10); EOSINOPHILS # (AUTO) 0.6 10^3/uL (0.0-0.3); EOSINOPHILS % (AUTO) 7 % (0-10); LYMPHOCYTES % (AUTO) 24 % (12-44); MEAN CORPUSCULAR HEMOGLOBIN 31 PG (25-34); MEAN CORPUSCULAR HGB CONC 33 G/DL (32-36); MEAN CORPUSCULAR VOLUME 95 FL (80-99); MEAN PLATELET VOLUME 11.1 FL (7.4-10.4); MONOCYTES % (AUTO) 12 % (0-12); NEUTROPHILS # (AUTO) 4.7 X 10^3 (1.8-7.8); NEUTROPHILS % (AUTO) 55 % (42-75); PLATELET COUNT 210 10^3/uL (130-400); RED CELL DISTRIBUTION WIDTH 13.2 % (10.0-14.5); WHITE BLOOD COUNT 8.4 10^3/uL (4.3-11.0)
[2017-10-07] MEDS ORDERED: CEFD300C3 PO (02:22)
[2017-10-07 02:27] LABS: CALCIUM 10.3 MG/DL (8.5-10.1); CREATININE SERUM 1.52 MG/DL (0.60-1.30); POTASSIUM 4.5 MMOL/L (3.6-5.0)
[2017-10-07] MEDS ORDERED: cefTRIAXone INJECTION 1,000 MG in NS (IVPB) 50 ML IV ONE (02:30)
[2017-10-07 05:05] VITALS: BP 174/88
--- NOTE | 2017-10-07 07:08 | Diagnostic Imaging Report ---
PELVIS WITH RIGHT HIP 2-3VIEWS Comparison: 12/23/2016 Indication: Right hip pain after fall Technique: AP pelvis with AP and frog-leg lateral views of the right hip. Findings: No acute fracture of the right hip. Degenerative changes of the symphysis pubis are stable. Moderate osteoarthritis of the right hip is also unchanged. Evaluation of sacrum is very limited due to diffuse osseous demineralization and overlying bowel gas. Left total hip arthroplasty without acute periprosthetic fracture. Common iliac stents are in place. There is also a stent within the right superficial femoral artery. Impression: 1. No acute fracture about the right hip. Dictated by: Dictated on workstation # [id number]
--- NOTE | 2017-10-07 07:10 | Diagnostic Imaging Report ---
INDICATION: Right arm pain after fall out of chair. COMPARISON: None available. TECHNIQUE: AP and lateral views of the right humerus were obtained. FINDINGS: There are severe degenerative changes at the glenohumeral joint which have resulted in rim of osteophytes around the anatomical neck of the humerus. Allowing for this, there is no definitive fracture within the humerus. Elbow is normal in alignment. No abnormal periosteal reaction. IMPRESSION: 1. No definitive fracture. 2. Severe osteoarthritis in the glenohumeral joint has marginal osteophytes which may obscure a nondisplaced fracture. If there is strong clinical suspicion for proximal humeral head fracture, dedicated radiograph of the right shoulder are suggested. Dictated by: Dictated on workstation # [id number]
--- NOTE | 2017-10-07 07:11 | Diagnostic Imaging Report ---
INDICATION: Trauma. COMPARISON: 01/15/2017. FINDINGS: Lungs are clear where visualized. Posterior lower lobes are poorly evaluated. No pleural effusion or pneumothorax. Stable cardiomegaly. Soft tissue thickening along right aspect of the trachea is unchanged. Severe osteoarthritis of the right glenohumeral joint. No displaced rib fractures. Long segment ACDF in the cervical spine. IMPRESSION: 1. No acute traumatic injury in the chest by portable radiography. Dictated by: Dictated on workstation # [id number]
--- NOTE | 2017-10-07 07:25 | Diagnostic Imaging Report ---
PROCEDURE: CT head and CT cervical spine without contrast. TECHNIQUE: Multiple contiguous axial images were obtained through the brain and cervical spine without the use of intravenous contrast. Sagittal and coronal reformations through the cervical spine were then performed. INDICATION: Head and neck pain after fall. COMPARISON: CT head of 12/23/2016. FINDINGS: CT HEAD: No hyperdense hemorrhage or space-occupying mass. No hydrocephalus or midline shift. Age-appropriate global atrophy. Old lacunar infarct in the left basal ganglia near the inferior aspect of the lentiform nucleus. Severe periventricular white matter hypoattenuation which is compatible with chronic microvascular ischemic disease. Basilar cisterns remain patent. No acute skull fracture. CT CERVICAL SPINE: Long segment anterior cervical discectomy and fusion from C3-C7. There is solid osseous fusion across the C5 through C7 vertebral bodies. No acute osseous or hardware fracture. No traumatic malalignment. Multilevel moderate degenerative changes are greatest adjacent to the ACDF (adjacent segment disease). No cervical lymphadenopathy. IMPRESSION: 1. No acute intracranial hemorrhage or skull fracture. 2. No acute fracture or traumatic malalignment of the cervical spine. 3. Status post long segment ACDF of C3-C7. No hardware complication. Dictated by: Dictated on workstation # [id number]
== END 2017-10-07 05:05 ==
LOC: EDUNIT# 01:08 → ER 01:12
DX: S09.90XA Unspecified injury of head, initial encounter (principal); S70.01XA Contusion of right hip, initial encounter; M79.621 Pain in right upper arm; G89.29 Other chronic pain; R91.8 Other nonspecific abnormal finding of lung field; J44.9 Chronic obstructive pulmonary disease, unspecified; I25.10 Atherosclerotic heart disease of native coronary artery without angina pectoris; E78.00 Pure hypercholesterolemia, unspecified; I10 Essential (primary) hypertension; F03.90 Unspecified dementia, unspecified severity, without behavioral disturbance, psychotic disturbance, mood disturbance, and anxiety; K21.9 Gastro-esophageal reflux disease without esophagitis; M81.0 Age-related osteoporosis without current pathological fracture; M19.90 Unspecified osteoarthritis, unspecified site; F41.9 Anxiety disorder, unspecified; F31.9 Bipolar disorder, unspecified; Z87.19 Personal history of other diseases of the digestive system; Z79.82 Long term (current) use of aspirin; W07.XXXA Fall from chair, initial encounter
CPT/HCPCS: 36415; 70450; 71010; 72125; 73060; 80048; 85025

== ENCOUNTER 2018-01-10 21:21 | Emergency (ER) | payer MEDICARE, OTHER, MEDICAID ==
[~2018-01-10] VITALS: Ht 149.9 cm; Wt 78.1 kg
--- NOTE | 2018-01-10 21:41 | ED General ---
General Chief Complaint: Trauma-Non Activation Stated Complaint: FALL,HEAD INJ Nursing Triage Note: per EMS, patient told [facility] staff that she was going to pass out and fell backwards into wall hitting head and down to floor 1 hour prior to EMS getting activated. Patient c/o back pain on arrival to ER. no c-collar applied to due adult size being too large and pediatric being to small Nursing Sepsis Screen: No Definite Risk Source of Information: EMS, [facility] Records, Old Records, Other (ALL PMH IS FROM OLD RECORDS, INTERMEDIATE RECORDS) Exam Limitations: Other (NO REPORT FROM INTERMEDIATE) History of Present Illness Date Seen by Provider: Jan 10, 2018 Time Seen by Provider: 21:25 Initial Comments PT ARRIVES VIA EMS FROM [facility] IN [place] PER EMS, PT TOLD NURSE SHE WAS GOING TO PASS OUT, THEN PT FELL BACKWARDS AND HIT HER HEAD ON THE WALL AND THEN THE FLOOR IS UNKNOWN IF THIS WAS ACTUALLY WITNESSED OR NOT IS UNKNOWN IF PT HAD LOSS OF CONSCIOUSNESS OCCURRED 2 HOURS PRIOR TO ARRIVAL, AND EMS WAS NOT CALLED FOR OVER AN HOUR LATER. EMS STATE PT C/O BACK PAIN ,BUT LEFT HIP WAS ALSO VERY TENDER TO PALPATION PT WITH DEMENTIA AND UNABLE TO GIVE ANY INFORMATION NO C-COLLAR ON PT, ADULT COLLAR WAS TOO LARGE AND PEDIATRIC COLLAR WAS TOO SMALL. BUT PT NOT WITH HEAD IMMOBILIZATION OF ANY KIND--NO PILLOWS, PADS, ETC. PT IS ON EFFIENT PCP: DR. RUBY Allergies and Home Medications Allergies Coded Allergies: celecoxib (Verified Allergy, Unknown, 12/25/16) iodine (Verified Allergy, Unknown, 12/25/16) Home Medications Albuterol Sulfate 8.5 Gm Hfa.aer.ad, 2 PUFF IH Q4H PRN for SHORTNESS OF BREATH, (Reported) Albuterol Sulfate 2.5 Mg/3 Ml Vial.neb, 2.5 MG IH QID PRN for SHORTNESS OF BREATH, (Reported) Alprazolam 0.25 Mg Tablet, 0.5 TAB PO TID, #30 Prescribed by: JANE NDIAYE on 12/30/16 1038 Ascorbate Calcium 500 Mg Tablet, 500 MG PO DAILY, (Reported) Aspirin 81 Mg Tablet.dr, 81 MG PO DAILY, (Reported) Benzonatate 100 Mg Capsule, 100 MG PO Q6H PRN for COUGH, (Reported) Calcium Carbonate/Vitamin D3 1 Each Tablet, 1 TAB PO BID, (Reported) Cefdinir 300 Mg Capsule, 300 MG PO BID, #4 Prescribed by: JANE NDIAYE on 12/30/16 1038 Cefdinir 300 Mg Capsule, 300 MG PO BID, #20 Prescribed by: BRAULIO GARCÍA on 10/07/17 0222 Clonidine HCl 0.1 Mg Tablet, 0.1 MG PO BID, (Reported) Cyanocobalamin (Vitamin B-12) 500 Mcg Tablet, 500 MCG PO MoWeFr, (Reported) Furosemide 20 Mg Tablet, 20 MG PO BID, (Reported) Guaifenesin 600 Mg Tab.er.12h, 600 MG PO BID, (Reported) Hydrocodone/Acetaminophen 1 Each Tablet, 1 TAB PO Q6H PRN for PAIN, #30 Prescribed by: JANE NDIAYE on 12/30/16 1038 Lactulose 20 Gm/30 Ml Solution, 10 GM PO BID PRN for CONSTIPATION for 30 Days Prescribed by: JANE NDIAYE on 12/30/16 1038 Losartan Potassium 100 Mg Tablet, 100 MG PO DAILY, (Reported) HOLD IF SBP < 100, CONTACT PCP IF SBP>180, DBP >100 Magnesium Hydroxide 400 Mg/5 Ml Oral.susp, 30 ML PO DAILY PRN for CONSTIPATION, (Reported) Montelukast Sodium 10 Mg Tablet, 10 MG PO HS, (Reported) Nystatin 1 Each Powder.ea., TOP PRN PRN for GAULDING, (Reported) Polyethylene Glycol 3350 17 Gm Powd.pack, 17 GM PO MoTh, (Reported) Potassium Chloride 20 Meq Tab.er.prt, 20 MEQ PO BID, (Reported) Prasugrel HCl 10 Mg Tablet, 5 MG PO DAILY, (Reported) TAKES 1/2 (10MG) TABLET Prednisone 10 Mg Tab.ds.pk, 10 MG PO DAILY, #21 Take 6 tabs(60mg)daily,decrease by 1 tab(10MG)daily. Prescribed by: JANE NDIAYE on 12/30/16 1038 Simvastatin 40 Mg Tablet, 40 MG PO HS, (Reported) Sodium Chloride 30 Ml [place], 1 SPRAY NS Q12H PRN for CONGESTION, (Reported) Tramadol HCl 50 Mg Tablet, 50 MG PO BID, #60 Prescribed by: JANE NDIAYE on 12/30/16 1038 Constitutional: other (PT UNABLE TO GIVE ANY INFORMATION DUE TO DEMENTIA) Past Cruztxk-Ityqct-Ppkdpm Hx Patient Social History Alcohol Use: Denies Use Recreational Drug Use: No Type Used: Cigarettes Recent Foreign Travel: No Contact w/Someone Who Travel: No Recent Infectious Disease Expo: No Recent Hopitalizations: No Physical Abuse: No Sexual Abuse: No Immunizations Up To Date Date of Pneumonia Vaccine: Aug 24, 2010 Date of Influenza Vaccine: Sep 03, 2017 Seasonal Allergies Seasonal Allergies: Yes Surgeries History of Surgeries: Yes (LEFT TOTAL HIP REPLACEMENT; CERVICAL SPINE SURGERY/ HARDWARE) Surgeries: Orthopedic Respiratory History of Respiratory Disorde: Yes (prn O2 for sats to keep >90%) Respiratory Disorders: COPD Cardiovascular History of Cardiac Disorders: Yes Cardiac Disorders: Chronic Edema/Swelling, Coronary Artery Disease, High Cholesterol, Hypertension Neurological History of Neurological Disord: Yes (Alzheimers, Behavorial disturbances) Neurological Disorders: Dementia 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 Genitourinary History of Genitourinary Disor: Yes Genitourinary Disorders: Renal Failure Gastrointestinal History of Gastrointestinal Di: Yes Gastrointestinal Disorders: Gastroesophageal Reflux, Chronic Constipation, Diverticulosis, Hiatal Hernia Musculoskeletal History of Musculoskeletal Dis: Yes Musculoskeletal Disorders: Osteoporosis, Arthritis Endocrine History of Endocrine Disorders: No (VITAMIN DEFICIENCY; HYPOKALEMIA) HEENT History of HEENT Disorders: No Cancer History of Cancer: No Psychosocial History of Psychiatric Problem: Yes (DEMENTIA; BIPOLAR WITH MANIC-SEVERE WITH PSYCHOTIC FEATURES) Behavioral Health Disorders: Sleep Difficulties, Anxiety, Bipolar, Depression Suicide Risk Score: 0 Integumentary History of Skin or Integumenta: No Blood Transfusions History of Blood Disorders: No Adverse Reaction to a Blood Tr: No Physical Exam Vital Signs Vital Signs - First Documented 01/10/18 21:26 Pulse 64 Resp 16 B/P (MAP) 147/75 (99) Pulse Ox 93 Capillary Refill : Less Than 3 Seconds General Appearance: WD/WN, Other (PT SCREAMING, HITTING STAFF, YELLING, CURSING ON ARRIVAL. PT WITH CONSTANT MUMBLINGS) HEENT: PERRL/EOMI Neck: Tender Lateral, Other (NO SPINE TENDERNESS BUT TENDERNESS TO TRAPEZIUS MUSCLES) Respiratory: Chest Non Tender, Normal Breath Sounds, No Accessory Muscle Use, No Respiratory Distress Cardiovascular: Regular Rate, Rhythm, No Edema, No JVD, No Murmur, Normal Peripheral Pulses Gastrointestinal: Non Tender, Soft Back: Other (DIFFUSE MILD BACK TENDERNESS. ) Extremity: Normal Capillary Refill, Normal Range of Motion, No Pedal Edema, Other (LEFT HIP TENDERNESS) Neurologic/Psychiatric: Alert, No Motor/Sensory Deficits (GROSSLY INTACT. 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 analyst II-XII Norm as Tested, Disoriented x3, Other (BEHAVIOR NOTED ABOVE) Skin: Normal Color, Warm/Dry, Other (NO EXTERNAL EVIDENCE OF TRAUMA NOTED ANYWHERE) Progress/Results/Core Measures Suspected Sepsis Recent Fever Within 48 Hours: No Infection Criteria Present: None New/Unexplained Altered Menta: No Sepsis Screen: No Definite Risk Sepsis Diagnosis: SIRS Temperature: Pulse: 64 Respiratory Rate: 16 Laboratory Tests 01/10/18 22:00: White Blood Count 10.1 Blood Pressure 147 /75 Mean: 99 Laboratory Tests 01/10/18 22:00: Creatinine 1.46H, INR Comment 1.0, Platelet Count 221, Total Bilirubin 0.2 Results/Orders Lab Results Laboratory Tests Test 01/10/18 22:00 Range/Units White Blood Count 10.1 4.3-11.0 10^3/uL Red Blood Count 3.94 L 4.35-5.85 10^6/uL Hemoglobin 12.6 11.5-16.0 G/DL Hematocrit 38 35-52 % Mean Corpuscular Volume 96 80-99 FL Mean Corpuscular Hemoglobin 32 25-34 PG Mean Corpuscular Hemoglobin Concent 33 32-36 G/DL Red Cell Distribution Width 13.7 10.0-14.5 % Platelet Count 221 130-400 10^3/uL Mean Platelet Volume 10.6 H 7.4-10.4 FL Neutrophils (%) (Auto) 69 42-75 % Lymphocytes (%) (Auto) 14 12-44 % Monocytes (%) (Auto) 11 0-12 % Eosinophils (%) (Auto) 6 0-10 % Basophils (%) (Auto) 1 0-10 % Neutrophils # (Auto) 7.0 1.8-7.8 X 10^3 Lymphocytes # (Auto) 1.4 1.0-4.0 X 10^3 Monocytes # (Auto) 1.1 H 0.0-1.0 X 10^3 Eosinophils # (Auto) 0.6 H 0.0-0.3 10^3/uL Basophils # (Auto) 0.1 0.0-0.1 10^3/uL Prothrombin Time 13.0 12.2-14.7 SEC INR Comment 1.0 0.8-1.4 Activated Partial Thromboplast Time 26 24-35 SEC Sodium Level 139 135-145 MMOL/L Potassium Level 4.8 3.6-5.0 MMOL/L Chloride Level 111 H 98-107 MMOL/L Carbon Dioxide Level 18 L 21-32 MMOL/L Anion Gap 10 5-14 MMOL/L Blood Urea Nitrogen 21 H 7-18 MG/DL Creatinine 1.46 H 0.60-1.30 MG/DL Estimat Glomerular Filtration Rate 34 BUN/Creatinine Ratio 14 Glucose Level 114 H 70-105 MG/DL Calcium Level 9.5 8.5-10.1 MG/DL Magnesium Level 3.0 H 1.8-2.4 MG/DL Total Bilirubin 0.2 0.1-1.0 MG/DL Aspartate Amino Transf (AST/SGOT) 38 H 5-34 U/L Alanine Aminotransferase (ALT/SGPT) 26 0-55 U/L Alkaline Phosphatase 103 40-136 U/L Troponin I < 0.30 <0.30 NG/ML Total Protein 7.1 6.4-8.2 GM/DL Albumin 3.6 3.2-4.5 GM/DL My Orders Orders - BRAULIO GARCÍA DO Ct Head/Cervical Spine Wo (01/10/18 21:30) Ct Thoracic/Lumbar Spine Wo (01/10/18 21:30) Saline Lock/Iv-Start (01/10/18 21:30) Cbc With Automated Diff (01/10/18 21:30) Comprehensive Metabolic Panel (01/10/18 21:30) Magnesium (01/10/18 21:30) Protime With Inr (01/10/18 21:30) Partial Thromboplastin Time (01/10/18 21:30) Troponin I (01/10/18 21:30) Ua Culture If Indicated (01/10/18 21:30) Chest 1 View, Ap/Pa Only (01/10/18 21:30) Pelvis/Fredi Hips 5> Views (01/10/18 21:30) Ekg Tracing (01/10/18 21:30) O2 (01/10/18 21:30) Monitor-Rhythm Ecg Trace Only (01/10/18 21:30) Vital Signs/I&O Vital Sign - Last 12Hours 01/10/18 21:26 Pulse 64 Resp 16 B/P (MAP) 147/75 (99) Pulse Ox 93 Capillary Refill : Less Than 3 Seconds Blood Pressure Mean: 99 Progress Note : Progress Note PT RESTED QUIETLY WHEN LEFT ALONE, WHEN STAFF TRIED TO MOVE HER, OR TAKE VITALS , ETC. PT BEGAN YELLING, CURSING AND HITTING. Diagnostic Imaging Comments CXR--NO ACUTE PROCESS, PENDING RADIOLOGIST REVIEW PELVIS / BILATERAL HIPS--NO ACUTE PROCESS, PENDING RADIOLOGIST REVIEW CT THORACIC/LUMBAR SPINE--NO ACUTE PROCESS, CHRONIC/DEGENERATIVE CHANGES--PER [facility] VIA FAX @ 1528 CT HEAD/CERVICAL SPINE--NO ACUTE PROCESS, CHRONIC / DEGENERATIVE CHANGES--PER [facility] VIA FAX @ 2357 Reviewed: Reviewed by Me Departure Impression Impression: Primary Impression: FALL VS SYNCOPE Additional Impressions: Head contusion Contusion of left hip BACK AND NECK STRAIN Dementia Disposition: 03 XFER SNF Condition: Stable Departure-Patient Inst. Referrals: EMA RUBY MD (PCP/Family) Primary Care Physician Patient Instructions: Contusion (DC), Minor Head Injury (DC), Muscle and Bone Pain (DC), Preventing Falls in the Older Adult Add. Discharge Instructions: CONTINUE ALL REGULAR MEDICATIONS FOLLOW UP WITH DR. RUBY NEEDED RETURN TO ER IF SYMPTOMS WORSEN All discharge instructions reviewed with patient and/or family. Voiced understanding. BRAULIO GARCÍA DO Jan 10, 2018 21:40
[2018-01-10 22:14] LABS: BASOPHILS # (AUTO) 0.1 10^3/uL (0.0-0.1); BASOPHILS % (AUTO) 1 % (0-10); EOSINOPHILS # (AUTO) 0.6 10^3/uL (0.0-0.3); EOSINOPHILS % (AUTO) 6 % (0-10); HEMATOCRIT 38 % (35-52); HEMOGLOBIN 12.6 G/DL (11.5-16.0); LYMPHOCYTES # (AUTO) 1.4 X 10^3 (1.0-4.0); LYMPHOCYTES % (AUTO) 14 % (12-44); MEAN CORPUSCULAR HEMOGLOBIN 32 PG (25-34); MEAN CORPUSCULAR HGB CONC 33 G/DL (32-36); MEAN CORPUSCULAR VOLUME 96 FL (80-99); MEAN PLATELET VOLUME 10.6 FL (7.4-10.4); MONOCYTES # (AUTO) 1.1 X 10^3 (0.0-1.0); MONOCYTES % (AUTO) 11 % (0-12); NEUTROPHILS % (AUTO) 69 % (42-75); PLATELET COUNT 221 10^3/uL (130-400); RED BLOOD COUNT 3.94 10^6/uL (4.35-5.85); RED CELL DISTRIBUTION WIDTH 13.7 % (10.0-14.5); WHITE BLOOD COUNT 10.1 10^3/uL (4.3-11.0)
[2018-01-10 22:41] LABS: ALANINE AMINOTRANSFERASE 26 U/L (0-55); ALBUMIN 3.6 GM/DL (3.2-4.5); ALKALINE PHOSPHATASE 103 U/L (40-136); BILIRUBIN,TOTAL 0.2 MG/DL (0.1-1.0); BUN/CREATININE RATIO 14; CALCIUM 9.5 MG/DL (8.5-10.1); CARBON DIOXIDE 18 MMOL/L (21-32); CHLORIDE 111 MMOL/L (98-107); CREATININE SERUM 1.46 MG/DL (0.60-1.30); GFR ESTIMATED 34; GLUCOSE 114 MG/DL (70-105); POTASSIUM 4.8 MMOL/L (3.6-5.0); SODIUM 139 MMOL/L (135-145); TOTAL PROTEIN 7.1 GM/DL (6.4-8.2)
[2018-01-11 00:47] VITALS: BP 147/75
--- NOTE | 2018-01-11 06:11 | Diagnostic Imaging Report ---
PROCEDURE: CT head and CT cervical spine without contrast. TECHNIQUE: Multiple contiguous axial images were obtained through the brain and cervical spine without the use of intravenous contrast. Sagittal and coronal reformations through the cervical spine were then performed. INDICATION: Fall, pain COMPARISON: 10/07/2017 FINDINGS: Moderate atrophy. No intracranial hemorrhage. 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 No CT evidence of an acute ischemic infarction. No intracranial mass, mass effect, midline shift, herniation hydrocephalus, or extra-axial fluid collection. The orbits are unremarkable. Scattered vascular calcifications. The paranasal sinuses are clear. The calvarium and extracalvarial soft tissues are unremarkable. Anterior plate and screw fixation of the cervical spine is again identified. Fusion involves C3 through the C6/C7 level. The most inferior screw appears to be extending through the C6/C7 disc space. Osseous bridging is noted through the remaining levels of the surgical fusion. Alignment is stable from the prior examination. Stable vertebral body height loss associated with T1. No new vertebral body height loss. Alignment of the atlantooccipital joint is well maintained. Significant degenerative changes are seen at the atlantoaxial joint. No acute fracture or dislocation. No destructive osseous process. Multilevel central canal or neuroforaminal stenosis is present, similar to the prior examination. This is secondary to facet joint degenerative changes and uncovertebral joint hypertrophy. There is also suggestion of multilevel disc osteophyte complexes. Scattered vascular calcifications. No apical pneumothorax. Paraspinal soft tissues are otherwise unremarkable. IMPRESSION: No acute intracranial abnormality. No acute osseous abnormality within the cervical spine. Atrophy with associated chronic ischemic changes. Postsurgical and degenerative changes with multilevel central canal and neuroforaminal stenosis. Agree with preliminary interpretation. Dictated by: Dictated on workstation # [id number]
--- NOTE | 2018-01-11 06:17 | Diagnostic Imaging Report ---
INDICATION: Fall, pain. COMPARISON: 12/23/2016 TECHNIQUE: Multiple contiguous axial CT images are obtained through the thoracolumbar spine without use of intravenous contrast dated 01/10/2018. Sagittal and coronal reformatted images are reviewed. FINDINGS: Stable grade 1 anterolisthesis of L5 on S1. No additional significant anterolisthesis or retrolisthesis. Accentuation of the normal thoracic kyphosis. Mild reverse S-shaped curvature of the thoracolumbar spine. Postsurgical changes within the partially visualized lower cervical spine. The most inferior screw appears to extend through the C6/C7 disc space, stable from prior examination. Chronic mild vertebral body height loss associated with T1. Multilevel mild anterior wedge deformities are again identified, stable from the prior examination. No new vertebral body height loss. Mild multilevel disc space height loss. Bilateral pars interarticularis defects of L5. The sacroiliac joints are intact. Chronic healed right-sided rib fractures. No acute fracture or dislocation. Left total hip arthroplasty. Scattered vascular calcifications. Hepatic cyst. No pneumothorax. Minimal emphysematous changes. IMPRESSION: No acute osseous abnormality with scattered osseous degenerative changes. Grade 1 anterolisthesis of L5 on S1 secondary to bilateral pars interarticularis defects of L5. Additional findings as above. Agree with preliminary interpretation. Dictated by: Dictated on workstation # [id number]
--- NOTE | 2018-01-11 08:20 | Diagnostic Imaging Report ---
INDICATION: Injury from a fall EXAM: Portable chest at 10:56 PM FINDINGS: Heart size and mediastinum are normal. The lungs are clear. There are no effusions or pneumothoraces. IMPRESSION: Negative chest. Dictated by: Dictated on workstation # [id number]
--- NOTE | 2018-01-11 08:25 | Diagnostic Imaging Report ---
INDICATION: Patient fell with new pelvic and hip pain. DISCUSSION: AP view of the pelvis and two views of the bilateral hips were obtained, comparison 10/07/2017. Iliac stents are again noted. Total left hip arthroplasty stable. No hardware complications. Moderate degenerative disease within the right hip is stable. No acute fracture or dislocation identified. 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 Soft tissues are unremarkable. IMPRESSION: 1. Stable pelvis. No acute fracture identified. Dictated by: Dictated on workstation # [id number]
== END 2018-01-11 00:47 ==
LOC: EDUNIT# 21:21 → ER 21:22
DX: S00.93XA Contusion of unspecified part of head, initial encounter (principal); S39.012A Strain of muscle, fascia and tendon of lower back, initial encounter; S16.1XXA Strain of muscle, fascia and tendon at neck level, initial encounter; S70.02XA Contusion of left hip, initial encounter; F03.90 Unspecified dementia, unspecified severity, without behavioral disturbance, psychotic disturbance, mood disturbance, and anxiety; K21.9 Gastro-esophageal reflux disease without esophagitis; I25.10 Atherosclerotic heart disease of native coronary artery without angina pectoris; E78.00 Pure hypercholesterolemia, unspecified; E87.6 Hypokalemia; J44.9 Chronic obstructive pulmonary disease, unspecified; I10 Essential (primary) hypertension; Z96.642 Presence of left artificial hip joint; Z79.52 Long term (current) use of systemic steroids; Z79.82 Long term (current) use of aspirin; Z91.048 Other nonmedicinal substance allergy status; Z88.6 Allergy status to analgesic agent; W01.198A Fall on same level from slipping, tripping and stumbling with subsequent striking against other object, initial encounter
CPT/HCPCS: 36415; 70450; 71045; 72125; 72128; 72131; 73523; 80053; 83735; 84484; 85025; 85610; 85730; 93041